=== PATIENT | male | born 1950 | race Caucasian/White ===

== ENCOUNTER 2019-05-01 05:39 | Emergency (ER) | payer MEDICARE, OTHER ==
[2019-05-01] MEDS ORDERED: Adacel Vial IM ONE ×2 (06:25→06:33)
[2019-05-01] MEDS ORDERED: Zofran 4 MG/2 ML VIAL IV ONE (06:25)
--- NOTE | 2019-05-01 06:26 | ERPHSYRPT ---
- History of Present Illness Time Seen by Provider: 05/01/19 06:10 Source: patient Exam Limitations: no limitations Patient Subjective Stated Complaint: pt states he was woking on equipment in his garage yesterday. states he was down on his knees and thinks he may have a piece of metal in his knee. states pain woke him up around 0200, he has swelling , redness, and warmth in his knee. Triage Nursing Assessment: pt alert and oriented, answers questions approp. pt back per wheelchair. ambulates from wheelchair to stretcher with limping gait noted. respirations nonlabored. small open area to rt knee with redness and warmth surrounding. pedal pulse and cap refill to rt wnl. Physician History: 68 y/o white male presents with right knee redness, tenderness and warmth. pt was working with [employer] yesterday. he knelt down onto right knee and thinks he has a piece of metal under the skin. within 24 hours, he has the above sx. he did place antibiotic ointment on open site. pt is not diabetic. he has not had a fever. Method of Injury: other (knelt onto ground) Occurred: yesterday Quality: constant, burning Severity of Pain-Max: moderate Severity of Pain-Current: moderate Lower Extremities Pain: knee: right Modifying Factors: Improves With: movement (hurts) Allergies/Adverse Reactions: Penicillins Allergy (Verified 01/04/13 09:18) Hx Tetanus, Diphtheria Vaccination/Date Given: No Hx Influenza Vaccination/Date Given: No Hx Pneumococcal Vaccination/Date Given: No Immunizations Up to Date: No - Review of Systems Constitutional: No Symptoms Eyes: No Symptoms Ears, Nose, & Throat: No Symptoms Respiratory: No Symptoms Cardiac: No Symptoms Abdominal/Gastrointestinal: No Symptoms Genitourinary Symptoms: No Symptoms Skin: Cellulitis (skin of ant knee on right ), Induration Neurological: No Symptoms Psychological: No Symptoms Endocrine: No Symptoms Hematologic/Lymphatic: No Symptoms Immunological/Allergic: No Symptoms All Other Systems: Reviewed and Negative - Past Medical History Pertinent Past Medical History: Yes Neurological History: No Pertinent History ENT History: No Pertinent History Cardiac History: Myocardial Infarction ([place]) Respiratory History: No Pertinent History Endocrine Medical History: No Pertinent History Musculoskeletal History: Arthritis GI Medical History: No Pertinent History History: No Pertinent History Psycho-Social History: No Pertinent History Male Reproductive Disorders: No Pertinent History Other Medical History: SHIKHA - Past Surgical History Past Surgical History: Yes (knee, shoulder, cardiac stenting) Cardiac: Cardiac Stent Respiratory: No Pertinent History Gastrointestinal: No Pertinent History Genitourinary: No Pertinent History Musculoskeletal: Orthopedic Surgery - Social History Smoking Status: Current every day smoker How long have you smoked: yrs Exposure to second hand smoke: No Drug Use: none Patient Lives Alone: Yes - Nursing Vital Signs Nursing Vital Signs: Initial Vital Signs Temperature 97.8 F 05/01/19 05:46 Pulse Rate 65 05/01/19 05:46 Respiratory Rate 20 05/01/19 05:46 Blood Pressure 126/62 05/01/19 05:46 O2 Sat by Pulse Oximetry 100 05/01/19 05:46 Pain Scale Pain Intensity 10 - Physical Exam General Appearance: no apparent distress, alert, anxiety Eyes, Ears, Nose, Throat Exam: normal ENT inspection, moist mucous membranes Neck Exam: normal inspection, non-tender, supple, full range of motion Cardiovascular/Respiratory Exam: chest non-tender Gastrointestinal/Abdominal Exam: non-tender Back Exam: normal inspection, normal range of motion, No CVA tenderness, No vertebral tenderness Hips Exam: bilateral: non-tender, normal inspection, normal range of motion, no evidence of injury Legs Exam: bilateral leg: non-tender, normal inspection, normal range of motion , no evidence of injury Knees Exam: right knee: pain, soft tissue tenderness, swelling, other (warmth, redness ant knee; no pus expressible), left knee: non-tender, normal inspection , normal range of motion, no evidence of injury Ankle Exam: bilateral ankle: non-tender, normal inspection, normal range of motion, no evidence of injury Foot Exam: bilateral foot: non-tender, normal inspection, normal range of motion , no evidence of injury Neuro/Tendon Exam: normal sensation, normal motor functions, normal tendon functions Mental Status Exam: alert, oriented x 3, cooperative Skin Exam: normal color, other (warmth, redness, cellulitis and induration right ant knee) SpO2 Interpretation: normal SpO2: 100 O2 Delivery: Room Air - Course Nursing assessment & vital signs reviewed: Yes Ordered Tests: Active Orders 24 hr Category Date Time Status IV Insertion STAT Care 05/01/19 06:25 Active KNEE (3 VIEWS) Stat Exams 05/01/19 06:35 Ordered BLOOD CULTURE Stat Lab 05/01/19 06:49 Received CBC W DIFF Stat Lab 05/01/19 06:17 Completed CMP Stat Lab 05/01/19 06:17 Received CULTURE,WOUND Stat Lab 05/01/19 06:26 Uncollected Lactic Acid Stat Lab 05/01/19 06:38 Completed Medication Summary Discontinued Medications Generic Name Dose Route Start Last Admin Trade Name Anastacioq PRN Reason Stop Dose Admin Diphtheria/Tetanus/Acell Pertussis 0.5 ml 05/01/19 06:25 05/01/19 06:43 Adacel Vial IM 05/01/19 06:26 0.5 ml .ONCE ONE Administration Diphtheria/Tetanus/Acell Pertussis Confirm 05/01/19 06:33 Adacel Vial Administered 05/01/19 06:34 Dose 0.5 ml IM .STK-MED ONE Hydromorphone HCl 0.5 mg 05/01/19 06:28 05/01/19 06:37 Hydromorphone 1 Mg/Ml Ampule IV 05/01/19 06:29 0.5 mg STAT ONE Administration Hydromorphone HCl Confirm 05/01/19 06:33 Hydromorphone 1 Mg/Ml Ampule Administered 05/01/19 06:34 Dose 1 mg .ROUTE .STK-MED ONE Ceftriaxone Sodium/Dextrose 1 g in 50 mls @ 100 mls/hr 05/01/19 06:27 Rocephin 1 Gm-D5w 50 Ml Bag IV 05/01/19 06:56 STAT STA Ceftriaxone Sodium/Dextrose Confirm 05/01/19 06:33 Rocephin 1 Gm-D5w 50 Ml Bag Administered 05/01/19 06:34 Dose 1 g in 50 mls @ ud IV .STK-MED ONE Ondansetron HCl 4 mg 05/01/19 06:25 05/01/19 06:37 Zofran 4 Mg/2 Ml Vial IV 05/01/19 06:26 4 mg STAT ONE Administration Ondansetron HCl Confirm 05/01/19 06:33 Zofran 4 Mg/2 Ml Vial Administered 05/01/19 06:34 Dose 4 mg .ROUTE .STK-MED ONE Trimethoprim/Sulfamethoxazole 1 tab 05/01/19 06:28 05/01/19 06:51 Bactrim Ds Tablet PO 05/01/19 06:29 1 tab STAT STA Administration Trimethoprim/Sulfamethoxazole Confirm 05/01/19 06:33 Bactrim Ds Tablet Administered 05/01/19 06:34 Dose 1 tab PO .STK-MED ONE Lab/Rad Data: Laboratory Result Diagrams 05/01/19 06:17 Laboratory Results 05/01/19 05/01/19 Range/Units 06:38 06:17 WBC 10.0 (4.0-10.5) K/mm3 RBC 3.67 L (4.1-5.6) M/mm3 Hgb 12.8 (12.5-18.0) gm/dl Hct 37.3 L (42-50) % MCV 101.6 H (78-100) fl MCH 34.8 H (26-32) pg MCHC 34.3 (32-36) g/dl RDW 13.8 (11.5-14.0) % Plt Count 148 L (150-450) K/mm3 MPV 11.2 H (6-9.5) fl Gran % 64.5 (36.0-66.0) % Eos # (Auto) 0.25 (0-0.5) Absolute Lymphs (auto) 1.82 (1.0-4.6) Absolute Monos (auto) 1.47 H (0.0-1.3) Lymphocytes % 18.1 L (24.0-44.0) % Monocytes % 14.6 H (0.0-12.0) % Eosinophils % 2.5 (0.00-5.0) % Basophils % 0.3 (0.0-0.4) % Absolute Granulocytes 6.47 (1.4-6.9) Basophils # 0.03 (0-0.4) Lactic Acid 0.7 (0.4-2.0) - Progress Progress: unchanged, pain not gone completely, re-examined Progress Note: 05/01/19 07:07 xray right knee-no radiopaque fb visible Counseled pt/family regarding: lab results, diagnosis, need for follow-up, rad results - Departure Departure Disposition: Home Clinical Impression: Cellulitis of knee, right Condition: Stable Critical Care Time: No Referrals: SAMRA ANTONY MD [Primary Care Provider] - Additional Instructions: wash area daily with soap and water. no ointments, lotions or creams. return tomorrow morning for re evaluation, sooner if symptoms worsen Prescriptions: Hydrocodone/APAP 5/325 [[place] 5/325 mg] 1 each PO Q6H PRN PRN #10 tablet MDD 4 PRN Reason: Pain Smz/Tmp Ds Tablet [Bactrim Ds Tablet] 1 udtab PO BID #14 tablet
[2019-05-01] MEDS ORDERED: ROCEPHIN 1 Gm-D5w 50 ml Bag** 1 G/50 ML IVPB IV STA (06:27)
[2019-05-01] MEDS ORDERED: Hydromorphone 1 mg/ml Ampule IV ONE (06:28)
[2019-05-01] MEDS ORDERED: BACTRIM DS TABLET PO STA (06:28)
[2019-05-01] MEDS ORDERED: ROCEPHIN 1 Gm-D5w 50 ml Bag** 1 G/50 ML IVPB IV ONE (06:33)
[2019-05-01] MEDS ORDERED: BACTRIM DS TABLET PO ONE (06:33)
[2019-05-01] MEDS ORDERED: Hydromorphone 1 mg/ml Ampule ONE (06:33)
[2019-05-01] MEDS ORDERED: Zofran 4 MG/2 ML VIAL ONE (06:33)
[2019-05-01 07:00] LABS: Absolute Neutrophil Ct (ANC) 6.47 (1.4-6.9); BASOPHIL % 0.3 % (0.0-0.4); Basophil (Absolute #) 0.03 (0-0.4); Eosinophil % 2.5 % (0.00-5.0); Eosinophil (Absolute #) 0.25 (0-0.5); Hematocrit 37.3 % (42-50); Hemoglobin 12.8 gm/dl (12.5-18.0); Lymphocyte (Absolute #) 1.82 (1.0-4.6); Lymphocytes % 18.1 % (24.0-44.0); Mean Cell Volume 101.6 fl (78-100); Mean Corpuscular Hemoglobin 34.8 pg (26-32); Mean Corpuscular Hgb Concent. 34.3 g/dl (32-36); Mean Platelet Volume 11.2 fl (6-9.5); Monocyte (Absolute #) 1.47 (0.0-1.3); Monocytes % 14.6 % (0.0-12.0); Neutrophil % 64.5 % (36.0-66.0); Platelet Count 148 K/mm3 (150-450); Red Blood Count 3.67 M/mm3 (4.1-5.6); Red Cell Distribution Width 13.8 % (11.5-14.0)
[2019-05-01 07:11] LABS: ALBUMIN 3.5 g/dL (3.5-5.0); ALKALINE PHOSPHATASE 44 U/L (38-126); ANION GAP 13.6 MEQ/L (5-15); BLOOD UREA NITROGEN 25 mg/dL (9-20); CHLORIDE 106 mmol/L (98-107); Calcium 9.4 mg/dL (8.4-10.2); Carbon Dioxide 23 mmol/L (22-30); Creatinine 1 0.87 mg/dL (0.66-1.25); Glucose 98 mg/dL (74-106); Potassium 4.4 mmol/L (3.5-5.1); SGOT/AST 28 U/L (17-59); SGPT/ALT 22 U/L (0-50); SODIUM 138 mmol/L (137-145); Total Protein 6.3 g/dL (6.3-8.2)
[2019-05-01 08:36] VITALS: BP 146/69; PULSE 63; O2SAT 93
--- NOTE | 2019-05-01 09:13 | XRAY ---
Indication: Knee injury. Possible foreign body. Comparison: None 3 views of the right knee demonstrates mild medial joint space narrowing/spurring, small nonspecific effusion, anterior medial soft tissue swelling, and scattered vascular calcifications. No radiopaque foreign body. Remaining knee unremarkable.
== END 2019-05-01 08:48 | disposition home or self-care (01) ==
LOC: ED 05:39
DX: L03.115 Cellulitis of right lower limb (principal); S81.001A Unspecified open wound, right knee, initial encounter
CPT/HCPCS: 36000; 36415; 73562; 80053; 83605; 85025; 87040; 87070; 87077; 87186; 90471; 90715; 96365; 96374; 96375; 99284; J0696; J1170; J2405; A9270-GY

== ENCOUNTER 2019-05-02 07:46 | Emergency (ER) | payer MEDICARE, OTHER ==
[2019-05-02 07:56] VITALS: BP 118/63; PULSE 63; O2SAT 93
--- NOTE | 2019-05-02 07:59 | ERPHSYRPT ---
- History of Present Illness Time Seen by Provider: 05/02/19 07:53 Source: patient Exam Limitations: no limitations Allergies/Adverse Reactions: Penicillins Allergy (Verified 05/02/19 07:58) Home Medications: Hydrocodone /APAP 7.5/325 mg [[place] 7.5/325 mg Tab] 1 each PO Q6H PRN PRN 05/02/19 [History] Hx Tetanus, Diphtheria Vaccination/Date Given: No Hx Influenza Vaccination/Date Given: No Hx Pneumococcal Vaccination/Date Given: No - Past Medical History Pertinent Past Medical History: Yes Neurological History: No Pertinent History ENT History: No Pertinent History Cardiac History: Myocardial Infarction ([place]) Respiratory History: No Pertinent History Endocrine Medical History: No Pertinent History Musculoskeletal History: Arthritis GI Medical History: No Pertinent History History: No Pertinent History Psycho-Social History: No Pertinent History Male Reproductive Disorders: No Pertinent History Other Medical History: SHIKHA - Past Surgical History Past Surgical History: Yes (knee, shoulder, cardiac stenting) Cardiac: Cardiac Stent Respiratory: No Pertinent History Gastrointestinal: No Pertinent History Genitourinary: No Pertinent History Musculoskeletal: Orthopedic Surgery - Social History Smoking Status: Current every day smoker How long have you smoked: yrs Exposure to second hand smoke: No Drug Use: none Patient Lives Alone: Yes - Nursing Vital Signs Nursing Vital Signs: Initial Vital Signs Temperature 97.7 F 05/02/19 07:49 Pulse Rate 63 05/02/19 07:49 Respiratory Rate 16 05/02/19 07:49 Blood Pressure 118/63 05/02/19 07:49 O2 Sat by Pulse Oximetry 93 L 05/02/19 07:49 Pain Scale Pain Intensity 2 - Progress Progress: improved - Departure Departure Disposition: Home Clinical Impression: Cellulitis of knee, right Condition: Good Critical Care Time: No Referrals: SAMRA ANTONY MD [Primary Care Provider] - Additional Instructions: keep it clean, take antibiotics as recommended. Take pain medications as needed. Follow with her primary care for reevaluation artery next week. Return to ER for increasing pain/swelling/redness/discharge/fever or chills.
--- NOTE | 2019-05-02 08:12 | ERPHSYRPT ---
- History of Present Illness Time Seen by Provider: 05/02/19 07:53 Source: patient Exam Limitations: no limitations Patient Subjective Stated Complaint: pt here for a wound recheck, he has a piece of metal n right knee yesterday and was here for antibotices,he states the redness and swelling is better Triage Nursing Assessment: pt alert, walked in, resp easy, skin w/d/p. has puncture wound to right knee no drainage noted, reddness and swelling noted, Physician History: 68 years old male is into the ER for reevaluation of right knee cellulitis. Patient was seen in ER yesterday, started on Bactrim and has remarkable improvement since yesterday as the area was marked. He still has swelling with erythema and upper lateral side of right knee. No discharge. patient reports marked improvement in pain. He still have pain mild to moderate with ambulation and favoring on either side but no fever or chills. Occurred: days ago (2) Quality: aching, sharpness Severity of Pain-Max: moderate Severity of Pain-Current: mild Lower Extremities Pain: knee: right Modifying Factors: Improves With: immobilization, movement Allergies/Adverse Reactions: Penicillins Allergy (Verified 05/02/19 07:58) Home Medications: Hydrocodone /APAP 7.5/325 mg [[place] 7.5/325 mg Tab] 1 each PO Q6H PRN PRN 05/02/19 [History] Hx Tetanus, Diphtheria Vaccination/Date Given: Yes Hx Influenza Vaccination/Date Given: No Hx Pneumococcal Vaccination/Date Given: No Immunizations Up to Date: Yes - Review of Systems Constitutional: No Symptoms Ears, Nose, & Throat: No Symptoms Respiratory: No Symptoms Cardiac: No Symptoms Abdominal/Gastrointestinal: No Symptoms Musculoskeletal: Joint Redness, Joint Pain, Joint Swelling Skin: Cellulitis Psychological: No Symptoms Hematologic/Lymphatic: No Symptoms Immunological/Allergic: No Symptoms - Past Medical History Pertinent Past Medical History: Yes Neurological History: No Pertinent History ENT History: No Pertinent History Cardiac History: Myocardial Infarction ([place]) Respiratory History: No Pertinent History Endocrine Medical History: No Pertinent History Musculoskeletal History: Arthritis GI Medical History: No Pertinent History History: No Pertinent History Psycho-Social History: No Pertinent History Male Reproductive Disorders: No Pertinent History Other Medical History: SHIKHA - Past Surgical History Past Surgical History: Yes (knee, shoulder, cardiac stenting) Cardiac: Cardiac Stent Respiratory: No Pertinent History Gastrointestinal: No Pertinent History Genitourinary: No Pertinent History Musculoskeletal: Orthopedic Surgery - Social History Smoking Status: Current every day smoker How long have you smoked: yrs Exposure to second hand smoke: No Drug Use: none Patient Lives Alone: Yes - Nursing Vital Signs Nursing Vital Signs: Initial Vital Signs Temperature 97.7 F 05/02/19 07:49 Pulse Rate 63 05/02/19 07:49 Respiratory Rate 16 05/02/19 07:49 Blood Pressure 118/63 05/02/19 07:49 O2 Sat by Pulse Oximetry 93 L 05/02/19 07:49 Pain Scale Pain Intensity 2 - Physical Exam General Appearance: no apparent distress Neck Exam: normal inspection, non-tender, supple Cardiovascular/Respiratory Exam: normal breath sounds, regular rate/rhythm Back Exam: normal inspection Knees Exam: right knee: soft tissue tenderness, swelling (4x3 cm swelling in the right upper knee. Indurated, warm and mildly tender to touch. No fluctuation.) Neuro/Tendon Exam: normal sensation, normal motor functions, normal tendon functions Mental Status Exam: alert, oriented x 3, cooperative Skin Exam: normal color SpO2 Interpretation: normal SpO2: 93 O2 Delivery: Room Air - Course Nursing assessment & vital signs reviewed: Yes - Progress Progress: improved Progress Note: there's marked improvement and redness/cellulitis from area marked yesterday the only 4 cm now. No fluctuation. No fever or chills. I recommended patient continue with antibiotics and outpatient followup. Discussed signs and symptoms of worsening return to ER which he seems understanding. Stable for discharge. 05/02/19 08:05 Counseled pt/family regarding: diagnosis, need for follow-up - Departure Departure Disposition: Home Clinical Impression: Cellulitis of knee, right Condition: Good Critical Care Time: No Referrals: SAMRA ANTONY MD [Primary Care Provider] - Additional Instructions: keep it clean, take antibiotics as recommended. Take pain medications as needed. Follow with her primary care for reevaluation artery next week. Return to ER for increasing pain/swelling/redness/discharge/fever or chills.
== END 2019-05-02 08:26 | disposition home or self-care (01) ==
LOC: ED 07:46
DX: L03.115 Cellulitis of right lower limb (principal)
CPT/HCPCS: 99283

== ENCOUNTER 2023-03-05 08:49 | Observation (INO) | payer MEDICARE, OTHER ==
[2023-03-05] MEDS ORDERED: Hydromorphone 1 mg/ml Injection IV ONE ×2 (08:59→11:29)
[2023-03-05] MEDS ORDERED: Zofran 4 MG/2 ML VIAL IV ONE (08:59)
[2023-03-05] MEDS ORDERED: Sodium Chloride 0.9% 1000 ML 1,000 ML IV SCH (09:00)
[2023-03-05] MEDS ORDERED: Zofran 4 MG/2 ML VIAL ONE (09:18)
[2023-03-05] MEDS ORDERED: Hydromorphone 1 mg/ml Injection ONE ×2 (09:18→11:19)
--- NOTE | 2023-03-05 09:39 | ERPHSYRPT ---
- History of Present Illness Time Seen by Provider: 03/05/23 08:50 Historian: patient Exam Limitations: no limitations Patient Subjective Stated Complaint: C/O left groin pain that is sending sharp pains into his left thigh that he noticed at around 0200 today when attempting to get up and go to the bathroom during the night. Patient states pain is only a 2-3 if he is lying still in bed but shoots up to a 10 when attempting to stand up. Triage Nursing Assessment: Patient brought back to ER in a W/C. He was able to transfer to bed with assist of one staff. He is alert and oriented. Edema noted to BLE. Strong, equal pedal pulses present to in both feet. CMS to foot/toes WNL. Physician History: Patient is a 72-year-old white male who presents with a complaint of a severe pain in the left inguinal area which radiates down the side of the inner thigh and into the left side of the scrotum. The pain started at 2 AM when he got up to go to the bathroom he has had ever had a similar kind of pain he cannot walk more than a few steps secondary to the severe unremitting pain. While laying in the ER prior to his CT scan he did report to nursing staff that the pain on the left had remitted somewhat but he was now hurting on the right. Activities at Onset: other (Going to the bathroom) Quality: sharpness, stabbing, throbbing Abdominal Pain Onset Location: other (Left inguinal area) Pain Radiation: groin, other (Radiates into the thigh and into the scrotum) Severity of Pain-Max: severe Severity of Pain-Current: severe Associated Symptoms: testicular pain Previous symptoms: no prior history Allergies/Adverse Reactions: Penicillins Allergy (Verified 03/05/23 09:04) Home Medications: Aspirin EC 81 mg [Ecotrin 81 mg] 1 tab PO HS 03/05/23 [History] Clopidogrel Bisulfate [PLAVIX Tablet] 1 tab PO HS 03/05/23 [History] Ezetimibe 10 mg [Zetia 10 MG] 1 tab PO HS 03/05/23 [History] Lisinopril/Hydrochlorothiazide [Lisinopril-Hctz 20-12.5 mg Tab] 1 tab PO BID 03/05/23 [History] Metoprolol Tartrate 50 mg [Lopressor 50 MG] 1 tab PO BID 03/05/23 [History] PARoxetine HCL [Paroxetine HCl] 1 tab PO HS 03/05/23 [History] Rosuvastatin Calcium 1 tab PO HS 03/05/23 [History] Hx Tetanus, Diphtheria Vaccination/Date Given: Yes Hx Influenza Vaccination/Date Given: No Hx Pneumococcal Vaccination/Date Given: No Immunizations Up to Date: Yes Travel Risk - International Travel Have you traveled outside of the country in past 3 weeks: No - Coronavirus Screening Are you exhibiting any of the following symptoms?: No Close contact with a COVID-19 positive Pt in past 14-21 Days: No - Vaccine Status Have you recieved a Covid-19 vaccination: Yes [employer] Analyst: Unknown - Vaccination Dates Dates if Unknown: ? - Review of Systems Constitutional: No Fever, No Chills Eyes: No Symptoms Ears, Nose, & Throat: No Symptoms Respiratory: No Cough, No Dyspnea Cardiac: No Chest Pain, No Edema, No Syncope Abdominal/Gastrointestinal: No Abdominal Pain, No Nausea, No Vomiting, No Diarrhea Genitourinary Symptoms: Testicle Pain, Other (Groin pain when standing it feels as if there is an inguinal hernia palpable with rib climbing supine no definite hernia can be palpated.), No Dysuria Musculoskeletal: No Back Pain, No Neck Pain Skin: No Rash Neurological: No Dizziness, No Focal Weakness, No Sensory Changes Psychological: No Symptoms Endocrine: No Symptoms All Other Systems: Reviewed and Negative - Past Medical History Pertinent Past Medical History: Yes Neurological History: No Pertinent History ENT History: No Pertinent History Cardiac History: High Cholesterol, Hypertension, Myocardial Infarction (MS) Respiratory History: No Pertinent History Endocrine Medical History: No Pertinent History Musculoskeletal History: Arthritis GI Medical History: No Pertinent History History: No Pertinent History Psycho-Social History: Anxiety, Depression Male Reproductive Disorders: No Pertinent History Other Medical History: SHIKHA, DVT right leg - Past Surgical History Past Surgical History: Yes (knee, shoulder, cardiac stenting) Cardiac: Cardiac Catheterization, Cardiac Stent Respiratory: No Pertinent History Gastrointestinal: No Pertinent History Genitourinary: No Pertinent History Musculoskeletal: Orthopedic Surgery Other Surgical History: knee replacement - Social History Smoking Status: Current some day smoker How long have you smoked: Years Exposure to second hand smoke: No Drug Use: none Patient Lives Alone: Yes - Nursing Vital Signs Nursing Vital Signs: Initial Vital Signs Temperature 97.4 F 03/05/23 08:49 Pulse Rate 48 L 03/05/23 08:49 Respiratory Rate 18 03/05/23 08:49 Blood Pressure 103/60 03/05/23 08:49 O2 Sat by Pulse Oximetry 95 03/05/23 08:49 Pain Scale Pain Intensity 4 - Physical Exam General Appearance: no apparent distress, alert Eye Exam: PERRL/EOMI, eyes nml inspection Ears, Nose, Throat Exam: normal ENT inspection, pharynx normal, moist mucous membranes Neck Exam: normal inspection, non-tender, supple, full range of motion Respiratory Exam: normal breath sounds, lungs clear, No respiratory distress Cardiovascular Exam: regular rate/rhythm, normal heart sounds Gastrointestinal/Abdomen Exam: soft, No tenderness, No mass Male Genitalia Exam: hernia (When standing it feels like there is an inguinal hernia on the left this is not palpable with supination.), testicular tenderness Rectal Exam: deferred Back Exam: normal inspection, normal range of motion, No CVA tenderness, No vertebral tenderness Extremity Exam: normal inspection, normal range of motion, pelvis stable Neurologic Exam: alert, oriented x 3, cooperative, normal mood/affect, nml cereb ellar function, sensation nml, No motor deficits Skin Exam: normal color, warm, dry SpO2: 95 - Course Nursing assessment & vital signs reviewed: Yes EKG Interpreted by Me: RATE (44), Sinus Malik, NORMAL AXIS, Other (Border long prolonged borderline prolonged CA interval) - CT Exams Abdomen/Pelvis CT Interpretation: Other (CT interpretation reviewed by me) - Radiology Ultrasound Exam Scrotal Ultrasound: Other (Ultrasound reports reviewed by me) Ordered Tests: Active Orders 24 hr Category Date Time Status Clean Catch Urine Specimen STAT Care 03/05/23 08:59 Active IV Insertion STAT Care 03/05/23 08:59 Active ABDOMEN AND PELVIS W CONTRAST [CT] Stat Exams 03/05/23 09:00 Completed TESTICLE [US] Stat Exams 03/05/23 11:41 Completed VENOUS BILATERAL EXTREMITY [US] Stat Exams 03/05/23 11:42 Completed AMYLASE Stat Lab 03/05/23 09:30 Completed CBC W DIFF Stat Lab 03/05/23 09:30 Completed CMP Stat Lab 03/05/23 09:30 Completed CMP Stat Lab 03/05/23 12:38 Completed LIPASE Stat Lab 03/05/23 09:30 Completed Lactic Acid Stat Lab 03/05/23 08:59 Completed Potassium (Lab Test) [Potassium] Stat Lab 03/05/23 10:14 Completed UA W/RFX UR CULTURE Stat Lab 03/05/23 11:03 Completed Urine Triage Profile Stat Lab 03/05/23 11:03 Completed Medication Summary Generic Name Dose Route Start Last Admin Trade Name Freq PRN Reason Stop Dose Admin Sodium Chloride 1,000 mls @ 100 mls/hr 03/05/23 09:00 03/05/23 11:28 Sodium Chloride 0.9% 1000 Ml IV 04/04/23 08:59 Infused .Q10H STEFANIE Infusion Discontinued Medications Generic Name Dose Route Start Last Admin Trade Name Freq PRN Reason Stop Dose Admin Calcium Gluconate 1,000 mg 03/05/23 10:15 03/05/23 10:32 Calcium Gluconate 1000 Mg/10 Ml Vial IV 03/05/23 10:16 1,000 mg STAT ONE Administration Calcium Gluconate Confirm 03/05/23 10:32 Calcium Gluconate 1000 Mg/10 Ml Vial Administered 03/05/23 10:33 Dose 1,000 mg IV .STK-MED ONE Dextrose 25 ml 03/05/23 10:45 03/05/23 11:04 Dextrose 50%-Water 50 Ml Vial IV 03/05/23 10:46 Not Given ONCE ONE Dextrose Confirm 03/05/23 11:00 Dextrose 50%-Water 50 Ml Abboject Administered 03/05/23 11:01 Dose 50 ml IV .STK-MED ONE Dextrose 50 ml 03/05/23 11:03 03/05/23 11:04 Dextrose 50%-Water 50 Ml Abboject IV 03/05/23 11:04 50 ml STAT ONE Administration Hydromorphone HCl 1 mg 03/05/23 08:59 03/05/23 09:30 Hydromorphone 1 Mg/1ml Inj IV 03/05/23 09:00 1 mg STAT ONE Administration Hydromorphone HCl Confirm 03/05/23 09:18 Hydromorphone 1 Mg/1ml Inj Administered 03/05/23 09:19 Dose 1 mg .ROUTE .STK-MED ONE Hydromorphone HCl Confirm 03/05/23 11:19 Hydromorphone 1 Mg/1ml Inj Administered 03/05/23 11:20 Dose 1 mg .ROUTE .STK-MED ONE Hydromorphone HCl 1 mg 03/05/23 11:29 03/05/23 11:25 Hydromorphone 1 Mg/1ml Inj IV 03/05/23 11:30 1 mg STAT ONE Administration Insulin Human Regular 5 unit 03/05/23 10:36 03/05/23 11:00 Insulin Regular, Human 1 Unit IV 03/05/23 10:37 5 unit STAT ONE Administration Insulin Human Regular Confirm 03/05/23 10:59 Insulin Regular, Human 1 Unit Administered 03/05/23 11:00 Dose 5 unit .ROUTE .STK-MED ONE Ondansetron HCl 4 mg 03/05/23 08:59 03/05/23 09:28 Ondansetron Hcl 4 Mg/2 Ml Vial IV 03/05/23 09:00 4 mg STAT ONE Administration Ondansetron HCl Confirm 03/05/23 09:18 Ondansetron Hcl 4 Mg/2 Ml Vial Administered 03/05/23 09:19 Dose 4 mg .ROUTE .STK-MED ONE Sodium Polystyrene Sulfonate 30 g 03/05/23 10:38 03/05/23 11:10 Sodium Polystyrene Sulfonate 15 G/60 Ml Bottle PO 03/05/23 10:39 30 g STAT ONE Administration Sodium Polystyrene Sulfonate Confirm 03/05/23 10:59 Sodium Polystyrene Sulfonate 15 G/60 Ml Bottle Administered 03/05/23 11:00 Dose 30 g .ROUTE .STK-MED ONE Lab/Rad Data: Laboratory Result Diagrams 03/05/23 09:30 03/05/23 12:38 Laboratory Results 03/05/23 03/05/23 03/05/23 Range/Units 12:38 11:03 11:03 WBC (4.0-10.5) x10^3/uL RBC (4.1-5.6) x10^6/uL Hgb (12.5-18.0) g/dL Hct (42-50) % MCV (78-100) fL MCH (26-32) pg MCHC (32-36) g/dL RDW (11.5-14.0) % Plt Count (150-450) x10^3/uL MPV (7.5-11.0) fL Gran % (36.0-66.0) % Immature Gran % (Auto) (0.00-0.4) % Nucleat RBC Rel Count (0.00-0.1) % Eos # (Auto) (0-0.5) x10^3/uL Immature Gran # (Auto) (0.00-0.03) x10^3u/L Absolute Lymphs (auto) (1.0-4.6) x10^3/uL Absolute Monos (auto) (0.0-1.3) x10^3/uL Absolute Nucleated RBC (0.00-0.01) x10^3u/L Lymphocytes % (24.0-44.0) % Monocytes % (0.0-12.0) % Eosinophils % (0.00-5.0) % Basophils % (0.0-0.4) % Absolute Granulocytes (1.4-6.9) x10^3/uL Basophils # (0-0.4) x10^3/uL Sodium 136 L (137-145) mmol/L Potassium 5.5 H (3.5-5.1) mmol/L Chloride 110 H (98-107) mmol/L Carbon Dioxide 20 L (22-30) mmol/L Anion Gap 12.7 (5-15) MEQ/L BUN 28 H (9-20) mg/dL Creatinine 1.16 (0.66-1.25) mg/dL Estimated GFR > 60.0 ML/MIN Glucose 71 L (74-106) mg/dL Lactic Acid (0.4-2.0) Calcium 8.5 (8.4-10.2) mg/dL Total Bilirubin 0.30 (0.2-1.3) mg/dL AST 23 (17-59) U/L ALT 22 (0-50) U/L Alkaline Phosphatase 49 (38-126) U/L Serum Total Protein 5.8 L (6.3-8.2) g/dL Albumin 3.3 L (3.5-5.0) g/dL Amylase (30-110) U/L Lipase (23-300) U/L Urine Color Yellow (Yellow) Urine Appearance Clear (Clear) Urine pH 5.5 (4.6-8.0) Ur Specific [place] 1.020 (1.005-1.030) Urine Protein Negative (Negative) Urine Glucose (UA) Negative (Negative) mg/dL Urine Ketones Negative (Negative) Urine Blood Negative (Negative) Urine Nitrite Negative (Negative) Urine Bilirubin Negative (Negative) Urine Urobilinogen 1.0 A (0.2) mg/dL Ur Leukocyte Esterase Negative (Negative) U Hyaline Cast (Auto) NONE SEEN (0-2) /LPF Urine Microscopic RBC 0-2 (0-5) /HPF Urine Microscopic WBC 0-2 (0-5) /HPF Ur Epithelial Cells None Seen (None Seen) /HPF Urine Bacteria None Seen (None Seen) /HPF Urine Culture Reflexed NO (NO) Urine Opiates Level POSITIVE (NEGATIVE) Ur Methadone NEGATIVE (NEGATIVE) Urine Barbiturates NEGATIVE (NEGATIVE) Ur Phencyclidine (PCP) NEGATIVE (NEGATIVE) Urine Amphetamine NEGATIVE (NEGATIVE) U Benzodiazepine Level POSITIVE (NEGATIVE) Urine Cocaine NEGATIVE (NEGATIVE) Urine Marijuana (THC) NEGATIVE (NEGATIVE) 03/05/23 03/05/23 03/05/23 Range/Units 10:14 09:30 09:30 WBC 7.6 (4.0-10.5) x10^3/uL RBC 3.20 L (4.1-5.6) x10^6/uL Hgb 10.8 L (12.5-18.0) g/dL Hct 32.4 L (42-50) % MCV 101.3 H (78-100) fL MCH 33.8 H (26-32) pg MCHC 33.3 (32-36) g/dL RDW 13.8 (11.5-14.0) % Plt Count 132 L (150-450) x10^3/uL MPV 10.5 (7.5-11.0) fL Gran % 67.7 H (36.0-66.0) % Immature Gran % (Auto) 0.3 (0.00-0.4) % Nucleat RBC Rel Count 0.0 (0.00-0.1) % Eos # (Auto) 0.22 (0-0.5) x10^3/uL Immature Gran # (Auto) 0.02 (0.00-0.03) x10^3u/L Absolute Lymphs (auto) 1.37 (1.0-4.6) x10^3/uL Absolute Monos (auto) 0.80 (0.0-1.3) x10^3/uL Absolute Nucleated RBC 0.00 (0.00-0.01) x10^3u/L Lymphocytes % 18.1 L (24.0-44.0) % Monocytes % 10.6 (0.0-12.0) % Eosinophils % 2.9 (0.00-5.0) % Basophils % 0.4 (0.0-0.4) % Absolute Granulocytes 5.11 (1.4-6.9) x10^3/uL Basophils # 0.03 (0-0.4) x10^3/uL Sodium 134 L (137-145) mmol/L Potassium 6.8 H* 6.3 H* (3.5-5.1) mmol/L Chloride 108 H (98-107) mmol/L Carbon Dioxide 20 L (22-30) mmol/L Anion Gap 12.0 (5-15) MEQ/L BUN 32 H (9-20) mg/dL Creatinine 1.31 H (0.66-1.25) mg/dL Estimated GFR 56.8 ML/MIN Glucose 100 (74-106) mg/dL Lactic Acid (0.4-2.0) Calcium 8.6 (8.4-10.2) mg/dL Total Bilirubin 0.30 (0.2-1.3) mg/dL AST 29 (17-59) U/L ALT 23 (0-50) U/L Alkaline Phosphatase 55 (38-126) U/L Serum Total Protein 6.2 L (6.3-8.2) g/dL Albumin 3.6 (3.5-5.0) g/dL Amylase 77 (30-110) U/L Lipase 104 (23-300) U/L Urine Color (Yellow) Urine Appearance (Clear) Urine pH (4.6-8.0) Ur Specific [place] (1.005-1.030) Urine Protein (Negative) Urine Glucose (UA) (Negative) mg/dL Urine Ketones (Negative) Urine Blood (Negative) Urine Nitrite (Negative) Urine Bilirubin (Negative) Urine Urobilinogen (0.2) mg/dL Ur Leukocyte Esterase (Negative) U Hyaline Cast (Auto) (0-2) /LPF Urine Microscopic RBC (0-5) /HPF Urine Microscopic WBC (0-5) /HPF Ur Epithelial Cells (None Seen) /HPF Urine Bacteria (None Seen) /HPF Urine Culture Reflexed (NO) Urine Opiates Level (NEGATIVE) Ur Methadone (NEGATIVE) Urine Barbiturates (NEGATIVE) Ur Phencyclidine (PCP) (NEGATIVE) Urine Amphetamine (NEGATIVE) U Benzodiazepine Level (NEGATIVE) Urine Cocaine (NEGATIVE) Urine Marijuana (THC) (NEGATIVE) 03/05/23 Range/Units 08:59 WBC (4.0-10.5) x10^3/uL RBC (4.1-5.6) x10^6/uL Hgb (12.5-18.0) g/dL Hct (42-50) % MCV (78-100) fL MCH (26-32) pg MCHC (32-36) g/dL RDW (11.5-14.0) % Plt Count (150-450) x10^3/uL MPV (7.5-11.0) fL Gran % (36.0-66.0) % Immature Gran % (Auto) (0.00-0.4) % Nucleat RBC Rel Count (0.00-0.1) % Eos # (Auto) (0-0.5) x10^3/uL Immature Gran # (Auto) (0.00-0.03) x10^3u/L Absolute Lymphs (auto) (1.0-4.6) x10^3/uL Absolute Monos (auto) (0.0-1.3) x10^3/uL Absolute Nucleated RBC (0.00-0.01) x10^3u/L Lymphocytes % (24.0-44.0) % Monocytes % (0.0-12.0) % Eosinophils % (0.00-5.0) % Basophils % (0.0-0.4) % Absolute Granulocytes (1.4-6.9) x10^3/uL Basophils # (0-0.4) x10^3/uL Sodium (137-145) mmol/L Potassium (3.5-5.1) mmol/L Chloride (98-107) mmol/L Carbon Dioxide (22-30) mmol/L Anion Gap (5-15) MEQ/L BUN (9-20) mg/dL Creatinine (0.66-1.25) mg/dL Estimated GFR ML/MIN Glucose (74-106) mg/dL Lactic Acid 0.7 (0.4-2.0) Calcium (8.4-10.2) mg/dL Total Bilirubin (0.2-1.3) mg/dL AST (17-59) U/L ALT (0-50) U/L Alkaline Phosphatase (38-126) U/L Serum Total Protein (6.3-8.2) g/dL Albumin (3.5-5.0) g/dL Amylase (30-110) U/L Lipase (23-300) U/L Urine Color (Yellow) Urine Appearance (Clear) Urine pH (4.6-8.0) Ur Specific [place] (1.005-1.030) Urine Protein (Negative) Urine Glucose (UA) (Negative) mg/dL Urine Ketones (Negative) Urine Blood (Negative) Urine Nitrite (Negative) Urine Bilirubin (Negative) Urine Urobilinogen (0.2) mg/dL Ur Leukocyte Esterase (Negative) U Hyaline Cast (Auto) (0-2) /LPF Urine Microscopic RBC (0-5) /HPF Urine Microscopic WBC (0-5) /HPF Ur Epithelial Cells (None Seen) /HPF Urine Bacteria (None Seen) /HPF Urine Culture Reflexed (NO) Urine Opiates Level (NEGATIVE) Ur Methadone (NEGATIVE) Urine Barbiturates (NEGATIVE) Ur Phencyclidine (PCP) (NEGATIVE) Urine Amphetamine (NEGATIVE) U Benzodiazepine Level (NEGATIVE) Urine Cocaine (NEGATIVE) Urine Marijuana (THC) (NEGATIVE) - Progress Progress: improved Progress Note: 03/05/23 13:30 Patient had routine labs and we were surprised to discover a potassium of 6.3. An EKG was done which basically only showed a rate of 44 and a slight prolongation perhaps of the CA interval. We repeated the potassium because we thought that it was probably an error. The patient did have a BUN that was slightly elevated but creatinine was normal and GFR was greater than 60. Discussion with the patient revealed that he was eating large amounts of bananas to treat leg cramps. He says he had eaten 6-8 bananas a day. With the discovery of his elevated potassium being rechecked and a value of 6.8, the patient was given calcium gluconate 1 g Kayexalate 30 mg 30 g him sorry and Hum ulin insulin 5 units and D50 W as well as normal saline. It should also be noted the patient has a slow heart rate, a sinus bradycardia but he is taking 100 mg ofmetoprolol tartrate per day. Medical Desision Making - Discussion of managment Care discussed with:: hospitalist (Dr Werner) Reviewed:: Test results Agreed on:: Treatment plan (The plan was to monitor his potassium and really make sure that it continued a downward trend since it still slightly elevated. It was also decided that we would consult Dr. Gino Hloman who will be in the hospital tomorrow to ask him to examine the patient to try to elucidate the cause of his left i) Will see patient: in hospital - Diagnostic Testing Diagnostic test were ordered, analyzed, and reviewed by me: Yes Radiological Interpretation: Reviewed by me - Risk of complications The pt has a mod risk of morbidity or mortality based on: Need for prescription drug management - Departure Departure Disposition: Observation Clinical Impression: Left inguinal pain, Hyperkalemia Condition: Stable Critical Care Time: No Referrals: SAMRA ANTONY MD [Primary Care Provider] - Follow up/PCP as directed
[2023-03-05 09:40] LABS: Absolute Neutrophil Ct (ANC) 5.11 x10^3/uL (1.4-6.9); BASOPHIL % 0.4 % (0.0-0.4); Basophil (Absolute #) 0.03 x10^3/uL (0-0.4); Eosinophil % 2.9 % (0.00-5.0); Eosinophil (Absolute #) 0.22 x10^3/uL (0-0.5); Hematocrit 32.4 % (42-50); Hemoglobin 10.8 g/dL (12.5-18.0); IMMATURE GRAN # 0.02 x10^3u/L (0.00-0.03); IMMATURE GRAN % 0.3 % (0.00-0.4); Lymphocyte (Absolute #) 1.37 x10^3/uL (1.0-4.6); Lymphocytes % 18.1 % (24.0-44.0); Mean Cell Volume 101.3 fL (78-100); Mean Corpuscular Hemoglobin 33.8 pg (26-32); Mean Corpuscular Hgb Concent. 33.3 g/dL (32-36); Mean Platelet Volume 10.5 fL (7.5-11.0); Monocytes % 10.6 % (0.0-12.0); Neutrophil % 67.7 % (36.0-66.0); Platelet Count 132 x10^3/uL (150-450); Red Cell Distribution Width 13.8 % (11.5-14.0); White Blood Count 7.6 x10^3/uL (4.0-10.5)
[2023-03-05 09:54] LABS: ALBUMIN 3.6 g/dL (3.5-5.0); BILIRUBIN,TOTAL 0.3 mg/dL (0.2-1.3); Calcium 8.6 mg/dL (8.4-10.2); Creatinine 1 1.31 mg/dL (0.66-1.25); EST GLOMERULAR FILTRATION RATE 56.8 ML/MIN; Total Protein 6.2 g/dL (6.3-8.2)
[2023-03-05 09:59] LABS: Potassium 6.3 mmol/L (3.5-5.1)
[2023-03-05] MEDS ORDERED: Calcium Gluconate 10% 1000 MG IV ONE ×2 (10:15→10:32)
[2023-03-05] MEDS ORDERED: HUMULIN R IV ONE (10:36)
[2023-03-05] MEDS ORDERED: Kayexylate 15 GM/60 ML PO ONE (10:38)
[2023-03-05] MEDS ORDERED: D50W 50ML Vial IV ONE (10:45)
[2023-03-05] MEDS ORDERED: HUMULIN R ONE (10:59)
[2023-03-05] MEDS ORDERED: Kayexylate 15 GM/60 ML ONE (10:59)
[2023-03-05] MEDS ORDERED: D50W 50 ml Abboject IV ONE ×2 (11:00→11:03)
[2023-03-05 11:24] LABS: Amphetamine,Urine NEGATIVE (NEGATIVE); Barbiturate,Urine NEGATIVE (NEGATIVE); Benzodiazepine,Urine POSITIVE (NEGATIVE); Cocaine,Urine NEGATIVE (NEGATIVE); Methadone,Urine NEGATIVE (NEGATIVE); Opiate,Urine POSITIVE (NEGATIVE); PCP,Urine NEGATIVE (NEGATIVE); THC,Urine NEGATIVE (NEGATIVE)
--- NOTE | 2023-03-05 11:34 | XRAY ---
Indication: Left lower quadrant pain radiating left groin/scrotum. Multiple contiguous axial images obtained through the abdomen and pelvis using 80 cc Isovue 370 contrast. Comparison: None Lung bases demonstrates mild dependent atelectasis. No infiltrate or effusion. Heart not enlarged. Stomach mildly distended with food. Noncontrasted stomach and bowel loops appear nonobstructed with normal appendix. Mild diffuse scattered colonic fecal debris greatest in ascending colon. Mild scattered descending and sigmoid diverticulosis without diverticulitis. No free fluid/air. Gallbladder partially contracted without gallstones. A few hepatic cysts, largest 3 cm in left lobe. Both kidneys enhance and excrete with bilateral renal cysts, largest right midpole measuring 2.3 cm. Remaining liver, gallbladder, pancreas, spleen, adrenal glands, kidneys, ureters, and bladder are unremarkable. Moderate scattered aortoiliac calcifications. No AAA or pathologic retroperitoneal lymphadenopathy. Osseous structures intact with osteopenia, mild/moderate multilevel degenerative spondylosis, bilateral L5 spondylolysis with 3-4 mm anterolisthesis, and minimal dextroscoliosis. No ventral or inguinal hernias. Impression: 1. Mild diffuse fecal stasis, colonic diverticulosis without diverticulitis, hepatic/renal cysts, arteriosclerotic disease, and chronic bony findings. 2. Remaining CT abdomen/pelvis with contrast exam is negative.
[2023-03-05 11:36] LABS: Bacteria None Seen /HPF (None Seen); Epithelial Cells None Seen /HPF (None Seen); Hyaline Casts NONE SEEN /LPF (0-2); RBC 0-2 /HPF (0-5); WBC 0-2 /HPF (0-5)
[2023-03-05 11:39] LABS: Appearance Clear (Clear); Bilirubin Negative (Negative); Blood Negative (Negative); Glucose, Urine Negative (Negative); Ketones Negative (Negative); Leukocyte Esterase Negative (Negative); Nitrite Negative (Negative); Ph 5.5 (4.6-8.0); Protein,Urine Dip Negative (Negative)
[2023-03-05 11:40] LABS: ADD URINE CULTURE? NO (NO)
--- NOTE | 2023-03-05 12:45 | XRAY ---
Indication: Pain. Two-dimensional sonogram and color Doppler imaging of the major venous vessels of the left and right leg performed. Comparison: None No thrombus seen in the examined deep venous vessels of the left and right leg including greater saphenous vein. Veins demonstrate normal compressibility. Venous waveforms are normal with and without augmentation. Impression: Left and right legs negative for DVT.
--- NOTE | 2023-03-05 12:48 | XRAY ---
Indication: Pain. Two-dimensional testicular sonogram performed. Comparison: None Both testicles menstruates normal color perfusion. Right testicle measures 3.3 x 1.9 x 3.3 cm and the left measures 3.7 x 2.1 x 2.7 cm. Left testicle demonstrates 3 mm peripheral tunica albuginea cyst. No other focal solid/cystic intratesticular mass. Left epididymis demonstrates cluster of anechoic cysts, largest 2.8 x 2.0 x 2.7 cm and smallest 7 mm. Right epididymis sonographically unremarkable. No suspicious solid extratesticular mass or abnormal hydrocele. Impression: Cluster left epididymal cysts. Tiny left testicle tunica albuginea cyst. Negative sonogram right testicle.
[2023-03-05 12:53] LABS: ALBUMIN 3.3 g/dL (3.5-5.0); ALKALINE PHOSPHATASE 49 U/L (38-126); ANION GAP 12.7 MEQ/L (5-15); BLOOD UREA NITROGEN 28 mg/dL (9-20); CHLORIDE 110 mmol/L (98-107); Calcium 8.5 mg/dL (8.4-10.2); Carbon Dioxide 20 mmol/L (22-30); Creatinine 1 1.16 mg/dL (0.66-1.25); EST GLOMERULAR FILTRATION RATE > 60.0 ML/MIN; Glucose 71 mg/dL (74-106); Potassium 5.5 mmol/L (3.5-5.1); SGOT/AST 23 U/L (17-59); SGPT/ALT 22 U/L (0-50); SODIUM 136 mmol/L (137-145); Total Protein 5.8 g/dL (6.3-8.2)
--- NOTE | 2023-03-05 14:27 | PCM.HP ---
History of Present Illness - Chief Complaint Chief Complaint: Inguinal pain Date: 03/05/23 History of Present Illness: is a 72 year old male with a pmhx of HTN, HLD, DVT right leg, [place] with cardiac stents presenting with complaints of leg groin pain. Onset at 2 a.m. this morning. Pain is throbbing/dull with radiation to the LLE. Ambulation is an aggravating factor. Relief with pain medications. Patient states he has never had an episode similar. In ER patient was bradycardic with HR in the 30's and 40's, 98% on RA, afebrile, and normotensive. Lab finding remarkable for hgb of 10.8, plt count of 132, sodium level at 136, potassium at 5.5, chloride at 110, carbon dioxide at 20 and glucose level at 71. Urinalysis unremarkable. US/Testicles showed cluster left epididymal cysts. Tiny left testicle tunica albuginea cyst. Negative right testicle. Venous doppler negative for DVT. CT abd/pelvis noted mild diffuse fecal stasis, colonic diverticulosis without diverticulitis, hepatic/renal cysts, arteriosclerotic disease, and chronic bony findings. Patient was given calcium gluconate w/ insulin for hyperkalemia/ kayexylate/ zofran, as well as zofran and dilaudid. PCP: [facility]: Khalida Ruiz - Review of Systems Constitutional: No Symptoms Eyes: No Symptoms Ears, Nose, & Throat: No Symptoms Respiratory: No Symptoms Cardiac: Edema (BLE edema trace) Abdominal/Gastrointestinal: Other (Left groin pain) Genitourinary Symptoms: No Symptoms, Testicle Pain Skin: No Symptoms Neurological: No Symptoms Psychological: No Symptoms Medications & Allergies Home Medications: Home Medication List Aspirin EC 81 mg [Ecotrin 81 mg] 1 tab PO HS 03/05/23 [History Confirmed 03/05/23] Clopidogrel Bisulfate [PLAVIX Tablet] 1 tab PO HS 03/05/23 [History Confirmed 03/05/23] Ezetimibe 10 mg [Zetia 10 MG] 1 tab PO HS 03/05/23 [History Confirmed 03/05/23] Lisinopril/Hydrochlorothiazide [Lisinopril-Hctz 20-12.5 mg Tab] 1 tab PO BID 03/05/23 [History Confirmed 03/05/23] Metoprolol Tartrate 50 mg [Lopressor 50 MG] 1 tab PO BID 03/05/23 [History Confirmed 03/05/23] PARoxetine HCL [Paroxetine HCl] 1 tab PO HS 03/05/23 [History Confirmed 03/05/23] Rosuvastatin Calcium 1 tab PO HS 03/05/23 [History Confirmed 03/05/23] Allergies/Adverse Reactions: Allergies Allergy/AdvReac Type Severity Reaction Status Date / Time Penicillins Allergy Verified 03/05/23 09:04 - Past Medical History Past Medical History: Yes Neurological History: No Pertinent History ENT History: No Pertinent History Cardiac History: High Cholesterol, Hypertension, Myocardial Infarction ([place]) Respiratory History: No Pertinent History Endocrine Medical History: No Pertinent History Musculoskelatal History: Arthritis GI Medical History: No Pertinent History History: No Pertinent History Pyscho-Social History: Anxiety, Depression Male Reproductive Disorders: No Pertinent History Comment: SHIKHA, DVT right leg - Past Surgical History Past Surgical History: Yes (knee, shoulder, cardiac stenting) Cardiac History: Cardiac Catheterization, Cardiac Stent Respiratory Surgery: No Pertinent History GI Surgical History: No Pertinent History Genitourinary Surgical Hx: No Pertinent History Musculskeletal Surgical Hx: Orthopedic Surgery Other Surgical History: knee replacement - Social History Smoking Status: Current some day smoker How long have you smoked: Years Exposure to second hand smoke: No Alcohol: Rarely Drug Use: none - Physical Exam Vital Signs: Vital Signs - 24 hr Temp Pulse Resp BP BP Pulse Ox 03/05/23 13:41 95 03/05/23 13:30 39 L 11 L 107/75 98 03/05/23 12:30 39 L 14 125/42 96 03/05/23 12:00 39 L 12 115/56 96 03/05/23 11:31 42 L 13 142/39 94 L 03/05/23 11:04 44 L 16 148/57 95 03/05/23 11:03 48 L 19 148/57 03/05/23 10:31 43 L 13 118/50 94 L 03/05/23 10:01 44 L 9 L 120/48 94 L 03/05/23 09:30 131/50 95 03/05/23 09:03 103/60 95 03/05/23 08:49 97.4 F 48 L 18 103/60 95 General Appearance: mild distress Neurologic Exam: alert, oriented x 3, cooperative Eye Exam: PERRL/EOMI Respiratory Exam: normal breath sounds Cardiovascular Exam: regular rate/rhythm, normal heart sounds Gastrointestinal/Abdomen Exam: soft, normal bowel sounds, other (TTP left groin with palpable mass) Male Genitalia Exam: normal genitalia, hernia, testicular tenderness Rectal Exam: deferred Skin Exam: normal color Results - Labs Lab/Micro Results: Lab Results-Last 24 Hours 03/05/23 03/05/23 03/05/23 Range/Units 08:59 09:30 09:30 WBC 7.6 (4.0-10.5) x10^3/uL RBC 3.20 L (4.1-5.6) x10^6/uL Hgb 10.8 L (12.5-18.0) g/dL Hct 32.4 L (42-50) % MCV 101.3 H (78-100) fL MCH 33.8 H (26-32) pg MCHC 33.3 (32-36) g/dL RDW 13.8 (11.5-14.0) % Plt Count 132 L (150-450) x10^3/uL MPV 10.5 (7.5-11.0) fL Gran % 67.7 H (36.0-66.0) % Immature Gran % (Auto) 0.3 (0.00-0.4) % Nucleat RBC Rel Count 0.0 (0.00-0.1) % Eos # (Auto) 0.22 (0-0.5) x10^3/uL Immature Gran # (Auto) 0.02 (0.00-0.03) x10^3u/L Absolute Lymphs (auto) 1.37 (1.0-4.6) x10^3/uL Absolute Monos (auto) 0.80 (0.0-1.3) x10^3/uL Absolute Nucleated RBC 0.00 (0.00-0.01) x10^3u/L Lymphocytes % 18.1 L (24.0-44.0) % Monocytes % 10.6 (0.0-12.0) % Eosinophils % 2.9 (0.00-5.0) % Basophils % 0.4 (0.0-0.4) % Absolute Granulocytes 5.11 (1.4-6.9) x10^3/uL Basophils # 0.03 (0-0.4) x10^3/uL Sodium 134 L (137-145) mmol/L Potassium 6.3 H* (3.5-5.1) mmol/L Chloride 108 H (98-107) mmol/L Carbon Dioxide 20 L (22-30) mmol/L Anion Gap 12.0 (5-15) MEQ/L BUN 32 H (9-20) mg/dL Creatinine 1.31 H (0.66-1.25) mg/dL Estimated GFR 56.8 ML/MIN Glucose 100 (74-106) mg/dL Lactic Acid 0.7 (0.4-2.0) Calcium 8.6 (8.4-10.2) mg/dL Total Bilirubin 0.30 (0.2-1.3) mg/dL AST 29 (17-59) U/L ALT 23 (0-50) U/L Alkaline Phosphatase 55 (38-126) U/L Serum Total Protein 6.2 L (6.3-8.2) g/dL Albumin 3.6 (3.5-5.0) g/dL Amylase 77 (30-110) U/L Lipase 104 (23-300) U/L Urine Color (Yellow) Urine Appearance (Clear) Urine pH (4.6-8.0) Ur Specific [place] (1.005-1.030) Urine Protein (Negative) Urine Glucose (UA) (Negative) mg/dL Urine Ketones (Negative) Urine Blood (Negative) Urine Nitrite (Negative) Urine Bilirubin (Negative) Urine Urobilinogen (0.2) mg/dL Ur Leukocyte Esterase (Negative) U Hyaline Cast (Auto) (0-2) /LPF Urine Microscopic RBC (0-5) /HPF Urine Microscopic WBC (0-5) /HPF Ur Epithelial Cells (None Seen) /HPF Urine Bacteria (None Seen) /HPF Urine Culture Reflexed (NO) Urine Opiates Level (NEGATIVE) Ur Methadone (NEGATIVE) Urine Barbiturates (NEGATIVE) Ur Phencyclidine (PCP) (NEGATIVE) Urine Amphetamine (NEGATIVE) U Benzodiazepine Level (NEGATIVE) Urine Cocaine (NEGATIVE) Urine Marijuana (THC) (NEGATIVE) 03/05/23 03/05/23 03/05/23 Range/Units 10:14 11:03 11:03 WBC (4.0-10.5) x10^3/uL RBC (4.1-5.6) x10^6/uL Hgb (12.5-18.0) g/dL Hct (42-50) % MCV (78-100) fL MCH (26-32) pg MCHC (32-36) g/dL RDW (11.5-14.0) % Plt Count (150-450) x10^3/uL MPV (7.5-11.0) fL Gran % (36.0-66.0) % Immature Gran % (Auto) (0.00-0.4) % Nucleat RBC Rel Count (0.00-0.1) % Eos # (Auto) (0-0.5) x10^3/uL Immature Gran # (Auto) (0.00-0.03) x10^3u/L Absolute Lymphs (auto) (1.0-4.6) x10^3/uL Absolute Monos (auto) (0.0-1.3) x10^3/uL Absolute Nucleated RBC (0.00-0.01) x10^3u/L Lymphocytes % (24.0-44.0) % Monocytes % (0.0-12.0) % Eosinophils % (0.00-5.0) % Basophils % (0.0-0.4) % Absolute Granulocytes (1.4-6.9) x10^3/uL Basophils # (0-0.4) x10^3/uL Sodium (137-145) mmol/L Potassium 6.8 H* (3.5-5.1) mmol/L Chloride (98-107) mmol/L Carbon Dioxide (22-30) mmol/L Anion Gap (5-15) MEQ/L BUN (9-20) mg/dL Creatinine (0.66-1.25) mg/dL Estimated GFR ML/MIN Glucose (74-106) mg/dL Lactic Acid (0.4-2.0) Calcium (8.4-10.2) mg/dL Total Bilirubin (0.2-1.3) mg/dL AST (17-59) U/L ALT (0-50) U/L Alkaline Phosphatase (38-126) U/L Serum Total Protein (6.3-8.2) g/dL Albumin (3.5-5.0) g/dL Amylase (30-110) U/L Lipase (23-300) U/L Urine Color Yellow (Yellow) Urine Appearance Clear (Clear) Urine pH 5.5 (4.6-8.0) Ur Specific [place] 1.020 (1.005-1.030) Urine Protein Negative (Negative) Urine Glucose (UA) Negative (Negative) mg/dL Urine Ketones Negative (Negative) Urine Blood Negative (Negative) Urine Nitrite Negative (Negative) Urine Bilirubin Negative (Negative) Urine Urobilinogen 1.0 A (0.2) mg/dL Ur Leukocyte Esterase Negative (Negative) U Hyaline Cast (Auto) NONE SEEN (0-2) /LPF Urine Microscopic RBC 0-2 (0-5) /HPF Urine Microscopic WBC 0-2 (0-5) /HPF Ur Epithelial Cells None Seen (None Seen) /HPF Urine Bacteria None Seen (None Seen) /HPF Urine Culture Reflexed NO (NO) Urine Opiates Level POSITIVE (NEGATIVE) Ur Methadone NEGATIVE (NEGATIVE) Urine Barbiturates NEGATIVE (NEGATIVE) Ur Phencyclidine (PCP) NEGATIVE (NEGATIVE) Urine Amphetamine NEGATIVE (NEGATIVE) U Benzodiazepine Level POSITIVE (NEGATIVE) Urine Cocaine NEGATIVE (NEGATIVE) Urine Marijuana (THC) NEGATIVE (NEGATIVE) 03/05/23 Range/Units 12:38 WBC (4.0-10.5) x10^3/uL RBC (4.1-5.6) x10^6/uL Hgb (12.5-18.0) g/dL Hct (42-50) % MCV (78-100) fL MCH (26-32) pg MCHC (32-36) g/dL RDW (11.5-14.0) % Plt Count (150-450) x10^3/uL MPV (7.5-11.0) fL Gran % (36.0-66.0) % Immature Gran % (Auto) (0.00-0.4) % Nucleat RBC Rel Count (0.00-0.1) % Eos # (Auto) (0-0.5) x10^3/uL Immature Gran # (Auto) (0.00-0.03) x10^3u/L Absolute Lymphs (auto) (1.0-4.6) x10^3/uL Absolute Monos (auto) (0.0-1.3) x10^3/uL Absolute Nucleated RBC (0.00-0.01) x10^3u/L Lymphocytes % (24.0-44.0) % Monocytes % (0.0-12.0) % Eosinophils % (0.00-5.0) % Basophils % (0.0-0.4) % Absolute Granulocytes (1.4-6.9) x10^3/uL Basophils # (0-0.4) x10^3/uL Sodium 136 L (137-145) mmol/L Potassium 5.5 H (3.5-5.1) mmol/L Chloride 110 H (98-107) mmol/L Carbon Dioxide 20 L (22-30) mmol/L Anion Gap 12.7 (5-15) MEQ/L BUN 28 H (9-20) mg/dL Creatinine 1.16 (0.66-1.25) mg/dL Estimated GFR > 60.0 ML/MIN Glucose 71 L (74-106) mg/dL Lactic Acid (0.4-2.0) Calcium 8.5 (8.4-10.2) mg/dL Total Bilirubin 0.30 (0.2-1.3) mg/dL AST 23 (17-59) U/L ALT 22 (0-50) U/L Alkaline Phosphatase 49 (38-126) U/L Serum Total Protein 5.8 L (6.3-8.2) g/dL Albumin 3.3 L (3.5-5.0) g/dL Amylase (30-110) U/L Lipase (23-300) U/L Urine Color (Yellow) Urine Appearance (Clear) Urine pH (4.6-8.0) Ur Specific [place] (1.005-1.030) Urine Protein (Negative) Urine Glucose (UA) (Negative) mg/dL Urine Ketones (Negative) Urine Blood (Negative) Urine Nitrite (Negative) Urine Bilirubin (Negative) Urine Urobilinogen (0.2) mg/dL Ur Leukocyte Esterase (Negative) U Hyaline Cast (Auto) (0-2) /LPF Urine Microscopic RBC (0-5) /HPF Urine Microscopic WBC (0-5) /HPF Ur Epithelial Cells (None Seen) /HPF Urine Bacteria (None Seen) /HPF Urine Culture Reflexed (NO) Urine Opiates Level (NEGATIVE) Ur Methadone (NEGATIVE) Urine Barbiturates (NEGATIVE) Ur Phencyclidine (PCP) (NEGATIVE) Urine Amphetamine (NEGATIVE) U Benzodiazepine Level (NEGATIVE) Urine Cocaine (NEGATIVE) Urine Marijuana (THC) (NEGATIVE) - Radiology Impressions Radiology Exams & Impressions: Radiology Procedures Category Date Time Status ABDOMEN AND PELVIS W CONTRAST [CT] Stat Exams 03/05/23 09:00 Completed TESTICLE [US] Stat Exams 03/05/23 11:41 Completed VENOUS BILATERAL EXTREMITY [US] Stat Exams 03/05/23 11:42 Completed Assessment/Plan (1) Hyperkalemia Current Visit: Yes Status: Acute Assessment & Plan: -Tele -Treatment in ER with calcium gluconate/insulin/kayexalate -Will repeat bmp and continue to monitor closely -Will review home meds as possible etiology Code(s): E87.5 - HYPERKALEMIA (2) Left inguinal pain Current Visit: Yes Status: Acute Assessment & Plan: -Imaging reviewed and essentially unremarkable -Dr. Gino Holman will see patient tomorrow, will keep NPO after midnight -Pain managment with dilaudid for now while NPO Code(s): R10.32 - LEFT LOWER QUADRANT PAIN (3) Bradycardia Current Visit: Yes Status: Acute Assessment & Plan: -Could be secondary to BB, will hold for now -Patient asymptomatic -Will continue to observe, check TSH, Trops, MG - EKG with rate of 44, mild prolongation of pr interval VTE: bilateral SCD will hold blood thinners for now until surgical consultation [place] decision maker: Korina (daughter) [phone] Code(s): R00.1 - BRADYCARDIA, UNSPECIFIED
[2023-03-05] MEDS ORDERED: Nicoderm CQ 21 MG TOP SCH (15:30)
[2023-03-05 16:29] LABS: MAGNESIUM 1.7 mg/dL (1.6-2.3); TROPONIN < 0.012 ng/mL (0.000-0.034); TSH, 3RD Generation 0.861 mIU/L (0.47-4.68)
[2023-03-05] MEDS: Hydromorphone 1 mg/ml Injection IV PRN (16:54)
[2023-03-05 20:03] LABS: ANION GAP 12.8 MEQ/L (5-15); BLOOD UREA NITROGEN 27 mg/dL (9-20); CHLORIDE 109 mmol/L (98-107); Calcium 8.7 mg/dL (8.4-10.2); Carbon Dioxide 20 mmol/L (22-30); Creatinine 1 0.98 mg/dL (0.66-1.25); EST GLOMERULAR FILTRATION RATE > 60.0 ML/MIN; Glucose 96 mg/dL (74-106); SODIUM 137 mmol/L (137-145)
[2023-03-05] MEDS: Paxil 20 MG PO SCH (22:09)
[2023-03-05] MEDS: Zetia 10 MG PO SCH (22:09)
[2023-03-05] MEDS: ZOCOR 20MG PO SCH (22:10)
[2023-03-06] MEDS: Zofran 4 MG/2 ML VIAL IV PRN ×3 (01:43→13:24)
[2023-03-06] MEDS: Hydromorphone 1 mg/ml Injection IV PRN ×4 (01:43→22:16)
--- NOTE | 2023-03-06 05:22 | PCM.NOTE ---
Date and Time: 03/06/23518 Subjective Assessment: is a 72 year old male with a pmhx of HTN, HLD, DVT right leg, [place] with cardiac stents presenting with complaints of leg groin pain. Onset at 2 a.m 03/05/23. Pain is throbbing/dull with radiation to the LLE. Ambulation is an aggravating factor. Relief with pain medications. Patient states he has never had an episode similar. Palpable left inguinal mass CT and dopplers negative for etiology, findings did include mild diffuse fecal statsis, colonic diverticulosis without diverticulitis, hepatic/renal cysts, arteriosclerotic disease, and chronic bony findings. Surgery consult pending. MRI pelvis ordered and pending completion. Toradol added for pain relief. - Review of Systems Constitutional: No Symptoms Eyes: No Symptoms Ears, Nose, & Throat: No Symptoms Respiratory: No Symptoms Cardiac: No Symptoms Abdominal/Gastrointestinal: Other (left inguinal pain with radiation to left thigh) Genitourinary Symptoms: No Symptoms Musculoskeletal: No Symptoms Skin: No Symptoms Neurological: No Symptoms Psychological: No Symptoms Endocrine: No Symptoms Hematologic/Lymphatic: No Symptoms Objective Exam General Appearance: moderate distress Neurologic Exam: alert, oriented x 3, cooperative Skin Exam: normal color Eye Exam: PERRL Ears, Nose, Throat Exam: normal ENT inspection Respiratory Exam: normal breath sounds, lungs clear Cardiovascular Exam: regular rate/rhythm, normal heart sounds Gastrointestinal/Abdomen Exam: soft, normal bowel sounds Extremity Exam: normal inspection, other (TTP left inguinal region/ no palpable mass noted on exam) Male Genitalia Exam: testicular tenderness OBJECTIVE DATA Vital Signs: Vital Signs - 24 hr Temp Pulse Resp BP BP Pulse Ox 03/06/23 04:00 97.8 F 53 L 16 149/69 95 03/06/23 00:00 18 03/05/23 23:32 97.7 F 51 L 18 159/65 96 03/05/23 20:00 97.0 F 51 L 18 149/67 97 03/05/23 16:11 16 03/05/23 14:12 97.2 F 39 L 18 139/78 92 L 03/05/23 13:41 95 03/05/23 13:30 39 L 11 L 107/75 98 03/05/23 12:30 39 L 14 125/42 96 03/05/23 12:00 39 L 12 115/56 96 03/05/23 11:31 42 L 13 142/39 94 L 03/05/23 11:04 44 L 16 148/57 95 03/05/23 11:03 48 L 19 148/57 03/05/23 10:31 43 L 13 118/50 94 L 03/05/23 10:01 44 L 9 L 120/48 94 L 03/05/23 09:30 131/50 95 03/05/23 09:03 103/60 95 03/05/23 08:49 97.4 F 48 L 18 103/60 95 Pain Assessment - Last Documented Pain Intensity 4 Pain Scale Used 0-10 Pain Scale Intake and Output: Intake & Output 03/03/23 03/04/23 03/05/23 03/06/23 11:59 11:59 11:59 11:59 Intake Total 700 Output Total 750 Balance -50 Weight 93.3 kg 93.5 kg Lab Results: Lab Results-Last 24 Hours 03/05/23 03/05/23 03/05/23 Range/Units 08:59 09:30 09:30 WBC 7.6 (4.0-10.5) x10^3/uL RBC 3.20 L (4.1-5.6) x10^6/uL Hgb 10.8 L (12.5-18.0) g/dL Hct 32.4 L (42-50) % MCV 101.3 H (78-100) fL MCH 33.8 H (26-32) pg MCHC 33.3 (32-36) g/dL RDW 13.8 (11.5-14.0) % Plt Count 132 L (150-450) x10^3/uL MPV 10.5 (7.5-11.0) fL Gran % 67.7 H (36.0-66.0) % Immature Gran % (Auto) 0.3 (0.00-0.4) % Nucleat RBC Rel Count 0.0 (0.00-0.1) % Eos # (Auto) 0.22 (0-0.5) x10^3/uL Immature Gran # (Auto) 0.02 (0.00-0.03) x10^3u/L Absolute Lymphs (auto) 1.37 (1.0-4.6) x10^3/uL Absolute Monos (auto) 0.80 (0.0-1.3) x10^3/uL Absolute Nucleated RBC 0.00 (0.00-0.01) x10^3u/L Lymphocytes % 18.1 L (24.0-44.0) % Monocytes % 10.6 (0.0-12.0) % Eosinophils % 2.9 (0.00-5.0) % Basophils % 0.4 (0.0-0.4) % Absolute Granulocytes 5.11 (1.4-6.9) x10^3/uL Basophils # 0.03 (0-0.4) x10^3/uL Sodium 134 L (137-145) mmol/L Potassium 6.3 H* (3.5-5.1) mmol/L Chloride 108 H (98-107) mmol/L Carbon Dioxide 20 L (22-30) mmol/L Anion Gap 12.0 (5-15) MEQ/L BUN 32 H (9-20) mg/dL Creatinine 1.31 H (0.66-1.25) mg/dL Estimated GFR 56.8 ML/MIN Glucose 100 (74-106) mg/dL Lactic Acid 0.7 (0.4-2.0) Calcium 8.6 (8.4-10.2) mg/dL Magnesium (1.6-2.3) mg/dL Total Bilirubin 0.30 (0.2-1.3) mg/dL AST 29 (17-59) U/L ALT 23 (0-50) U/L Alkaline Phosphatase 55 (38-126) U/L Troponin I (0.000-0.034) ng/mL Serum Total Protein 6.2 L (6.3-8.2) g/dL Albumin 3.6 (3.5-5.0) g/dL Amylase 77 (30-110) U/L Lipase 104 (23-300) U/L TSH 3rd Generation (0.47-4.68) mIU/L Urine Color (Yellow) Urine Appearance (Clear) Urine pH (4.6-8.0) Ur Specific [place] (1.005-1.030) Urine Protein (Negative) Urine Glucose (UA) (Negative) mg/dL Urine Ketones (Negative) Urine Blood (Negative) Urine Nitrite (Negative) Urine Bilirubin (Negative) Urine Urobilinogen (0.2) mg/dL Ur Leukocyte Esterase (Negative) U Hyaline Cast (Auto) (0-2) /LPF Urine Microscopic RBC (0-5) /HPF Urine Microscopic WBC (0-5) /HPF Ur Epithelial Cells (None Seen) /HPF Urine Bacteria (None Seen) /HPF Urine Culture Reflexed (NO) Urine Opiates Level (NEGATIVE) Ur Methadone (NEGATIVE) Urine Barbiturates (NEGATIVE) Ur Phencyclidine (PCP) (NEGATIVE) Urine Amphetamine (NEGATIVE) U Benzodiazepine Level (NEGATIVE) Urine Cocaine (NEGATIVE) Urine Marijuana (THC) (NEGATIVE) 03/05/23 03/05/23 03/05/23 Range/Units 10:14 11:03 11:03 WBC (4.0-10.5) x10^3/uL RBC (4.1-5.6) x10^6/uL Hgb (12.5-18.0) g/dL Hct (42-50) % MCV (78-100) fL MCH (26-32) pg MCHC (32-36) g/dL RDW (11.5-14.0) % Plt Count (150-450) x10^3/uL MPV (7.5-11.0) fL Gran % (36.0-66.0) % Immature Gran % (Auto) (0.00-0.4) % Nucleat RBC Rel Count (0.00-0.1) % Eos # (Auto) (0-0.5) x10^3/uL Immature Gran # (Auto) (0.00-0.03) x10^3u/L Absolute Lymphs (auto) (1.0-4.6) x10^3/uL Absolute Monos (auto) (0.0-1.3) x10^3/uL Absolute Nucleated RBC (0.00-0.01) x10^3u/L Lymphocytes % (24.0-44.0) % Monocytes % (0.0-12.0) % Eosinophils % (0.00-5.0) % Basophils % (0.0-0.4) % Absolute Granulocytes (1.4-6.9) x10^3/uL Basophils # (0-0.4) x10^3/uL Sodium (137-145) mmol/L Potassium 6.8 H* (3.5-5.1) mmol/L Chloride (98-107) mmol/L Carbon Dioxide (22-30) mmol/L Anion Gap (5-15) MEQ/L BUN (9-20) mg/dL Creatinine (0.66-1.25) mg/dL Estimated GFR ML/MIN Glucose (74-106) mg/dL Lactic Acid (0.4-2.0) Calcium (8.4-10.2) mg/dL Magnesium (1.6-2.3) mg/dL Total Bilirubin (0.2-1.3) mg/dL AST (17-59) U/L ALT (0-50) U/L Alkaline Phosphatase (38-126) U/L Troponin I (0.000-0.034) ng/mL Serum Total Protein (6.3-8.2) g/dL Albumin (3.5-5.0) g/dL Amylase (30-110) U/L Lipase (23-300) U/L TSH 3rd Generation (0.47-4.68) mIU/L Urine Color Yellow (Yellow) Urine Appearance Clear (Clear) Urine pH 5.5 (4.6-8.0) Ur Specific [place] 1.020 (1.005-1.030) Urine Protein Negative (Negative) Urine Glucose (UA) Negative (Negative) mg/dL Urine Ketones Negative (Negative) Urine Blood Negative (Negative) Urine Nitrite Negative (Negative) Urine Bilirubin Negative (Negative) Urine Urobilinogen 1.0 A (0.2) mg/dL Ur Leukocyte Esterase Negative (Negative) U Hyaline Cast (Auto) NONE SEEN (0-2) /LPF Urine Microscopic RBC 0-2 (0-5) /HPF Urine Microscopic WBC 0-2 (0-5) /HPF Ur Epithelial Cells None Seen (None Seen) /HPF Urine Bacteria None Seen (None Seen) /HPF Urine Culture Reflexed NO (NO) Urine Opiates Level POSITIVE (NEGATIVE) Ur Methadone NEGATIVE (NEGATIVE) Urine Barbiturates NEGATIVE (NEGATIVE) Ur Phencyclidine (PCP) NEGATIVE (NEGATIVE) Urine Amphetamine NEGATIVE (NEGATIVE) U Benzodiazepine Level POSITIVE (NEGATIVE) Urine Cocaine NEGATIVE (NEGATIVE) Urine Marijuana (THC) NEGATIVE (NEGATIVE) 03/05/23 03/05/23 03/05/23 Range/Units 12:38 15:40 19:35 WBC (4.0-10.5) x10^3/uL RBC (4.1-5.6) x10^6/uL Hgb (12.5-18.0) g/dL Hct (42-50) % MCV (78-100) fL MCH (26-32) pg MCHC (32-36) g/dL RDW (11.5-14.0) % Plt Count (150-450) x10^3/uL MPV (7.5-11.0) fL Gran % (36.0-66.0) % Immature Gran % (Auto) (0.00-0.4) % Nucleat RBC Rel Count (0.00-0.1) % Eos # (Auto) (0-0.5) x10^3/uL Immature Gran # (Auto) (0.00-0.03) x10^3u/L Absolute Lymphs (auto) (1.0-4.6) x10^3/uL Absolute Monos (auto) (0.0-1.3) x10^3/uL Absolute Nucleated RBC (0.00-0.01) x10^3u/L Lymphocytes % (24.0-44.0) % Monocytes % (0.0-12.0) % Eosinophils % (0.00-5.0) % Basophils % (0.0-0.4) % Absolute Granulocytes (1.4-6.9) x10^3/uL Basophils # (0-0.4) x10^3/uL Sodium 136 L 137 (137-145) mmol/L Potassium 5.5 H 5.0 (3.5-5.1) mmol/L Chloride 110 H 109 H (98-107) mmol/L Carbon Dioxide 20 L 20 L (22-30) mmol/L Anion Gap 12.7 12.8 (5-15) MEQ/L BUN 28 H 27 H (9-20) mg/dL Creatinine 1.16 0.98 (0.66-1.25) mg/dL Estimated GFR > 60.0 > 60.0 ML/MIN Glucose 71 L 96 (74-106) mg/dL Lactic Acid (0.4-2.0) Calcium 8.5 8.7 (8.4-10.2) mg/dL Magnesium 1.7 (1.6-2.3) mg/dL Total Bilirubin 0.30 (0.2-1.3) mg/dL AST 23 (17-59) U/L ALT 22 (0-50) U/L Alkaline Phosphatase 49 (38-126) U/L Troponin I < 0.012 (0.000-0.034) ng/mL Serum Total Protein 5.8 L (6.3-8.2) g/dL Albumin 3.3 L (3.5-5.0) g/dL Amylase (30-110) U/L Lipase (23-300) U/L TSH 3rd Generation 0.861 (0.47-4.68) mIU/L Urine Color (Yellow) Urine Appearance (Clear) Urine pH (4.6-8.0) Ur Specific [place] (1.005-1.030) Urine Protein (Negative) Urine Glucose (UA) (Negative) mg/dL Urine Ketones (Negative) Urine Blood (Negative) Urine Nitrite (Negative) Urine Bilirubin (Negative) Urine Urobilinogen (0.2) mg/dL Ur Leukocyte Esterase (Negative) U Hyaline Cast (Auto) (0-2) /LPF Urine Microscopic RBC (0-5) /HPF Urine Microscopic WBC (0-5) /HPF Ur Epithelial Cells (None Seen) /HPF Urine Bacteria (None Seen) /HPF Urine Culture Reflexed (NO) Urine Opiates Level (NEGATIVE) Ur Methadone (NEGATIVE) Urine Barbiturates (NEGATIVE) Ur Phencyclidine (PCP) (NEGATIVE) Urine Amphetamine (NEGATIVE) U Benzodiazepine Level (NEGATIVE) Urine Cocaine (NEGATIVE) Urine Marijuana (THC) (NEGATIVE) Radiology Exams: Radiology Procedures Category Date Time Status ABDOMEN AND PELVIS W CONTRAST [CT] Stat Exams 03/05/23 09:00 Completed TESTICLE [US] Stat Exams 03/05/23 11:41 Completed VENOUS BILATERAL EXTREMITY [US] Stat Exams 03/05/23 11:42 Completed Assessment/Plan (1) Hyperkalemia Current Visit: Yes Status: Acute Assessment & Plan: -Tele -Treatment in ER with calcium gluconate/insulin/kayexalate -Will repeat bmp and continue to monitor closely -Will review home meds as possible etiology 03/06: -resolved Code(s): E87.5 - HYPERKALEMIA (2) Left inguinal pain Current Visit: Yes Status: Acute Assessment & Plan: -Imaging reviewed and essentially unremarkable -Dr. Gino Holman will see patient tomorrow, will keep NPO after midnight -Pain managment with dilaudid for now while NPO 03/06: -MRI pelvis -Surg consult pending -add Toradol for pain managment Code(s): R10.32 - LEFT LOWER QUADRANT PAIN (3) Bradycardia Current Visit: Yes Status: Acute Assessment & Plan: -Could be secondary to BB, will hold for now -Patient asymptomatic -Will continue to observe, check TSH, Trops, MG - EKG with rate of 44, mild prolongation of pr interval 03/06: -Improved, now in the 50's, will continue to monitor VTE: bilateral SCD will hold blood thinners for now until surgical consultation [place] decision maker: Korina (daughter) [phone] Code(s): R00.1 - BRADYCARDIA, UNSPECIFIED
[2023-03-06 05:38] LABS: ALBUMIN 3.7 g/dL (3.5-5.0); ALKALINE PHOSPHATASE 54 U/L (38-126); ANION GAP 12.1 MEQ/L (5-15); BLOOD UREA NITROGEN 23 mg/dL (9-20); CHLORIDE 108 mmol/L (98-107); Calcium 8.9 mg/dL (8.4-10.2); Carbon Dioxide 21 mmol/L (22-30); Creatinine 1 0.95 mg/dL (0.66-1.25); EST GLOMERULAR FILTRATION RATE > 60.0 ML/MIN; Glucose 90 mg/dL (74-106); Potassium 5.1 mmol/L (3.5-5.1); SGOT/AST 25 U/L (17-59); SGPT/ALT 23 U/L (0-50); SODIUM 136 mmol/L (137-145); Total Protein 6.3 g/dL (6.3-8.2)
[2023-03-06 07:43] LABS: Absolute Neutrophil Ct (ANC) 4.08 x10^3/uL (1.4-6.9); BASOPHIL % 0.6 % (0.0-0.4); Basophil (Absolute #) 0.04 x10^3/uL (0-0.4); Eosinophil % 3.1 % (0.00-5.0); Hemoglobin 11.5 g/dL (12.5-18.0); IMMATURE GRAN # 0.01 x10^3u/L (0.00-0.03); IMMATURE GRAN % 0.2 % (0.00-0.4); Lymphocyte (Absolute #) 1.43 x10^3/uL (1.0-4.6); Lymphocytes % 22.5 % (24.0-44.0); Mean Cell Volume 103.7 fL (78-100); Mean Corpuscular Hemoglobin 33.1 pg (26-32); Mean Corpuscular Hgb Concent. 31.9 g/dL (32-36); Mean Platelet Volume 11.3 fL (7.5-11.0); Monocytes % 9.4 % (0.0-12.0); Neutrophil % 64.2 % (36.0-66.0); Platelet Count 133 x10^3/uL (150-450); Red Blood Count 3.47 x10^6/uL (4.1-5.6); Red Cell Distribution Width 13.7 % (11.5-14.0); White Blood Count 6.4 x10^3/uL (4.0-10.5)
[2023-03-06] MEDS ORDERED: Hydromorphone 1 mg/ml Injection IV PRN (07:55)
[2023-03-06] MEDS ORDERED: Nicoderm CQ 21 MG TOP SCH (10:00)
[2023-03-06] MEDS: TORAdol 30 mg Injection IV PRN ×2 (11:01→17:30)
[2023-03-06] MEDS ORDERED: Hydromorphone 1 mg/ml Injection IV ONE (15:45)
--- NOTE | 2023-03-06 17:27 | XRAY ---
Indication: Left inguinal pain. No known injury. Axial and coronal MRI both hips performed using pre-and post T1, T2, and STIR sequences. Post T1 and T2 fat sat images left hip obtained. 15 cc Dotarem contrast used. Comparison: None Hips are bilaterally symmetric without abnormal effusion, acute fracture, suspicious bony lesions, bony remodeling, or evidence for avascular necrosis. Surrounding soft tissues including visualized pelvic contents are unremarkable. Visualized lower lumbar spine, only seen on sagittal sequences, demonstrates broad-based disc bulge involving last 2 levels. Following gadolinium, there is no abnormal soft tissue or bony enhancement. Impression: Broad-based disc bulge last 2 lumbar disc levels better evaluated with dedicated MRI lumbar spine. Otherwise MRI pelvis with contrast exam is negative.
[2023-03-06] MEDS: Zetia 10 MG PO SCH (21:21)
[2023-03-06] MEDS: Paxil 20 MG PO SCH (21:21)
[2023-03-06] MEDS: ZOCOR 20MG PO SCH (21:22)
[2023-03-07] MEDS: TORAdol 30 mg Injection IV PRN ×2 (01:10→07:39)
[2023-03-07] MEDS: Zofran 4 MG/2 ML VIAL IV PRN (01:10)
[2023-03-07] MEDS: Hydromorphone 1 mg/ml Injection IV PRN ×2 (04:47→12:47)
[2023-03-07 06:06] LABS: ALBUMIN 3.4 g/dL (3.5-5.0); ALKALINE PHOSPHATASE 49 U/L (38-126); ANION GAP 13.4 MEQ/L (5-15); BLOOD UREA NITROGEN 29 mg/dL (9-20); CHLORIDE 108 mmol/L (98-107); Calcium 8.6 mg/dL (8.4-10.2); Carbon Dioxide 20 mmol/L (22-30); Creatinine 1 1.24 mg/dL (0.66-1.25); EST GLOMERULAR FILTRATION RATE > 60.0 ML/MIN; Glucose 96 mg/dL (74-106); Potassium 4.6 mmol/L (3.5-5.1); SGOT/AST 26 U/L (17-59); SGPT/ALT 22 U/L (0-50); SODIUM 137 mmol/L (137-145); Total Protein 5.9 g/dL (6.3-8.2)
[2023-03-07 06:17] LABS: Absolute Neutrophil Ct (ANC) 3.84 x10^3/uL (1.4-6.9); BASOPHIL % 0.5 % (0.0-0.4); Basophil (Absolute #) 0.03 x10^3/uL (0-0.4); Eosinophil % 2.2 % (0.00-5.0); Eosinophil (Absolute #) 0.13 x10^3/uL (0-0.5); Hematocrit 33.3 % (42-50); Hemoglobin 10.9 g/dL (12.5-18.0); IMMATURE GRAN # 0.02 x10^3u/L (0.00-0.03); IMMATURE GRAN % 0.3 % (0.00-0.4); Lymphocyte (Absolute #) 1.25 x10^3/uL (1.0-4.6); Lymphocytes % 21.4 % (24.0-44.0); Mean Cell Volume 101.5 fL (78-100); Mean Corpuscular Hemoglobin 33.2 pg (26-32); Mean Corpuscular Hgb Concent. 32.7 g/dL (32-36); Mean Platelet Volume 10.8 fL (7.5-11.0); Monocyte (Absolute #) 0.56 x10^3/uL (0.0-1.3); Monocytes % 9.6 % (0.0-12.0); Platelet Count 127 x10^3/uL (150-450); Red Blood Count 3.28 x10^6/uL (4.1-5.6); Red Cell Distribution Width 13.2 % (11.5-14.0); White Blood Count 5.8 x10^3/uL (4.0-10.5)
[2023-03-07 07:16] VITALS: RESP 16; TEMP 97.5
[2023-03-07] MEDS ORDERED: Zanaflex 4 MG PO PRN (10:59)
[2023-03-07 11:43] VITALS: BP 168/80; PULSE 58; O2SAT 95
--- NOTE | 2023-03-07 12:24 | PCM.DS ---
Discharge Summary Date of Admission: 03/05/23 14:07 Date of Discharge: 03/07/23 Admitting Physician: HIRAM RUBIO MD Consults: Consults on Case 03/06/23 07:33 Consult Surgery ROUTINE Primary Care Provider: OMAR ANTONYYESH Allergies Allergies Penicillins Allergy (Verified 03/05/23 09:04) Hospital Summary - Hospital Course Hospital Course: is a 72 year old male with a pmhx of HTN, HLD, DVT right leg, [place] with cardiac stents who presented 03/05/23 with complaints of leg groin pain. Onset at 2 a.m. Pain was described as throbbing/dull with radiation to the LLE. Ambulation an aggravating factor. Relief with pain medications. Patient stated he has never had an episode similar. CT,MRI pelvis and dopplers negative for etiology, findings did include mild diffuse fecal statsis, colonic diverticulosis without diverticulitis, hepatic/renal cysts, arteriosclerotic disease, and chronic bony findings. MRI pelvis did note broad-base disc bulge in the last two levels of his lumbar spine, otherwise negative. Patient does have chronic back pain for which he is in pain management for. I feel this may be resultant sciatica for which I am recommending follow up with neurosurgery as an outpatient. Pain has been relieved with Toradol during hospitalization. He will discharge today with [facility] as well as tizanidine x 3 day supply, and gabapentin. Patient does receive pain management with Dr. Fontaine and will discuss narcotic pain relief options with him. He was also found with hyperkalemia and bradycardia on admission and was treated with hyperkalemic protocol, no further incidence. HR has improved t 58. Patient is advised follow up with neurosurgery, pain management, and PCP. Most recent assessment and plan: (1) Hyperkalemia Current Visit: Yes Status: Acute Assessment & Plan: -Tele -Treatment in ER with calcium gluconate/insulin/kayexalate -Will repeat bmp and continue to monitor closely -Will review home meds as possible etiology 03/06: -resolved Code(s): E87.5 - HYPERKALEMIA (2) Left inguinal pain Current Visit: Yes Status: Acute Assessment & Plan: -Imaging reviewed and essentially unremarkable -Dr. Gino Holman will see patient tomorrow, will keep NPO after midnight -Pain managment with dilaudid for now while NPO 03/06: -MRI pelvis -Surg consult pending -add Toradol for pain managment 03/07: -neurosurgery as OP -MRI findings discussed above -Pain management as discussed above Code(s): R10.32 - LEFT LOWER QUADRANT PAIN (3) Bradycardia Current Visit: Yes Status: Acute Assessment & Plan: -Could be secondary to BB, will hold for now -Patient asymptomatic -Will continue to observe, check TSH, Trops, MG - EKG with rate of 44, mild prolongation of pr interval 03/06: -Improved, now in the 50's, will continue to monitor New diagnosis hyperkalemia/left inguinal pain New meds: Tizanidine/gabapentin Dispo: Home Follow up PCP/neurosurgery/pain management - Vitals & Intake/Output Vital Signs: Vital Signs Temperature 97.5 F 03/07/23 11:42 Pulse Rate 58 L 03/07/23 11:42 Respiratory Rate 16 03/07/23 11:42 Blood Pressure 168/80 03/07/23 11:42 O2 Sat by Pulse Oximetry 95 03/07/23 11:42 Intake & Output: Intake & Output 03/05/23 03/06/23 03/07/23 03/08/23 11:59 11:59 11:59 11:59 Intake Total 700 360 Output Total 750 50 Balance -50 310 Weight 93.3 kg 93.5 kg - Lab Result Diagrams: 03/07/23 04:54 03/07/23 04:54 Lab Results-Last 24 Hrs: Lab Results-Last 24 Hours 03/07/23 03/07/23 Range/Units 04:54 04:54 WBC 5.8 (4.0-10.5) x10^3/uL RBC 3.28 L (4.1-5.6) x10^6/uL Hgb 10.9 L (12.5-18.0) g/dL Hct 33.3 L (42-50) % MCV 101.5 H (78-100) fL MCH 33.2 H (26-32) pg MCHC 32.7 (32-36) g/dL RDW 13.2 (11.5-14.0) % Plt Count 127 L (150-450) x10^3/uL MPV 10.8 (7.5-11.0) fL Gran % 66.0 (36.0-66.0) % Immature Gran % (Auto) 0.3 (0.00-0.4) % Nucleat RBC Rel Count 0.0 (0.00-0.1) % Eos # (Auto) 0.13 (0-0.5) x10^3/uL Immature Gran # (Auto) 0.02 (0.00-0.03) x10^3u/L Absolute Lymphs (auto) 1.25 (1.0-4.6) x10^3/uL Absolute Monos (auto) 0.56 (0.0-1.3) x10^3/uL Absolute Nucleated RBC 0.00 (0.00-0.01) x10^3u/L Lymphocytes % 21.4 L (24.0-44.0) % Monocytes % 9.6 (0.0-12.0) % Eosinophils % 2.2 (0.00-5.0) % Basophils % 0.5 (0.0-0.4) % Absolute Granulocytes 3.84 (1.4-6.9) x10^3/uL Basophils # 0.03 (0-0.4) x10^3/uL Sodium 137 (137-145) mmol/L Potassium 4.6 (3.5-5.1) mmol/L Chloride 108 H (98-107) mmol/L Carbon Dioxide 20 L (22-30) mmol/L Anion Gap 13.4 (5-15) MEQ/L BUN 29 H (9-20) mg/dL Creatinine 1.24 (0.66-1.25) mg/dL Estimated GFR > 60.0 ML/MIN Glucose 96 (74-106) mg/dL Calcium 8.6 (8.4-10.2) mg/dL Total Bilirubin 0.50 (0.2-1.3) mg/dL AST 26 (17-59) U/L ALT 22 (0-50) U/L Alkaline Phosphatase 49 (38-126) U/L Serum Total Protein 5.9 L (6.3-8.2) g/dL Albumin 3.4 L (3.5-5.0) g/dL - Radiology Exams Ordered Rad Exams-Entire Visit: Radiology Procedures Category Date Time Status MRI PELVIS WITH CONTRAST [MRI] Stat Exams 03/06/23 12:27 Completed TESTICLE [US] Stat Exams 03/05/23 11:41 Completed VENOUS BILATERAL EXTREMITY [US] Stat Exams 03/05/23 11:42 Completed - Procedures and Test Procedures and Tests throughout Hospitalization: Therapy Orders & Screens 03/05/23 15:14 Smoking Cessation Education ONCE Comment: Diagnosis: Inguinal pain Smoking Status: Current some day smoker How long have you smoked: Years Have you smoked in the past 12 months: Yes Approximately how many cigarettes per day: 7 Do you dip or chew tobacco: No 03/07/23 10:32 PT Eval & Treat (MD Order) ONCE Reason for Eval:: PAIN WITH WALKING, NEED WALKER? Diagnosis: Inguinal pain Discharge Exam General Appearance: no apparent distress Neurologic Exam: alert, oriented x 3, cooperative Eye Exam: PERRL Respiratory Exam: normal breath sounds, lungs clear Cardiovascular Exam: regular rate/rhythm, normal heart sounds Gastrointestinal/Abdomen Exam: soft, normal bowel sounds Back Exam: other (TTP at left sacral spine) Extremity Exam: normal inspection Skin Exam: normal color Final Diagnosis/Problem List - Final Discharge Diagnosis/Problem (1) Hyperkalemia Current Visit: Yes Status: Resolved Code(s): E87.5 - HYPERKALEMIA (2) Left inguinal pain Current Visit: Yes Status: Acute Code(s): R10.32 - LEFT LOWER QUADRANT PAIN (3) Bradycardia Current Visit: Yes Status: Chronic Code(s): R00.1 - BRADYCARDIA, UNSPECIFIED - Discharge Disposition: HOME HEALTH SERVICE Condition: Stable Prescriptions: New Gabapentin 300 mg PO CLARIFY 30 Days #87 cap Tizanidine HCl 4 mg [Zanaflex 4 MG] 4 mg PO TID PRN PRN 3 Days #9 tablet PRN Reason: Muscle Spasms Continue PARoxetine HCL [Paroxetine HCl] 1 tab PO HS Lisinopril/Hydrochlorothiazide [Lisinopril-Hctz 20-12.5 mg Tab] 1 tab PO BID Ezetimibe 10 mg [Zetia 10 MG] 1 tab PO HS Clopidogrel Bisulfate [PLAVIX Tablet] 1 tab PO HS Rosuvastatin Calcium 1 tab PO HS Metoprolol Tartrate 50 mg [Lopressor 50 MG] 1 tab PO BID Aspirin EC 81 mg [Ecotrin 81 mg] 1 tab PO HS Instructions: Low Back Pain (DC), Herniated Disc (DC) Follow up with: SAMRA ANTONY MD [Primary Care Provider] - 03/14/23 1:45 pm BRADLEY GOOD [NON-STAFF PHY W/O PRIVILEGES] - OLEG FONTAINE I [NON-STAFF PHY W/O PRIVILEGES] -
--- NOTE | 2023-03-08 08:27 | CONS ---
CONSULT DATE: 03/07/2023 REASON FOR CONSULTATION: For persistent left inguinal pain. HISTORY OF PRESENT ILLNESS: Patient has left inguinal pain. It was debilitating when he started to step out on his left leg, he almost fell to the ground because of the electricity through the entire left side of his body. He is elderly, he is in his 70's. 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 He has some atrophy of the left testicle. He has no distention of any comparable inguinal hernia present. He has had some disc disease. He was told several years ago. He has had a CT and an MRI at this time. On the CT scan, there was no suggestion of any abdominal wall hernia. IMPRESSION: I do not feel there is any abdominal wall hernia present. His epididymitis is mild and chronic and is of minimal to no significance. I think the problem is neurological and I think a neurology referral probably is in order. I don't think there is anything much for urology to do. There is nothing for general surgery to do.
== END 2023-03-07 15:28 | disposition home health service (06) ==
LOC: ED 08:49 → MED SURG 14:07
PROVIDERS: ADMIT Internal Medicine; ATTEND Internal Medicine
DX: E87.5 Hyperkalemia (principal); R10.32 Left lower quadrant pain; R00.1 Bradycardia, unspecified; I10 Essential (primary) hypertension; I25.2 Old myocardial infarction; M54.9 Dorsalgia, unspecified; Z79.899 Other long term (current) drug therapy; Z20.828 Contact with and (suspected) exposure to other viral communicable diseases; Z86.718 Personal history of other venous thrombosis and embolism; Z79.01 Long term (current) use of anticoagulants; Z72.0 Tobacco use
CPT/HCPCS: 36000; 36415; 72196; 74177; 76870; 80048; 80053; 80307; 81001; 82150; 83605; 83690; 83735; 84132; 84443; 84484; 85025; 93005; 93041; 93268; 93970; 96374; 96375; 96376; 97161; 99285; G0378; Q3014; J0612; J1170; J1815; J1885; J2405; A9270-GY

== ENCOUNTER 2024-09-13 19:18 | Observation (INO) | payer MEDICARE, OTHER ==
--- NOTE | 2024-09-13 19:55 | ERPHSYRPT ---
- History of Present Illness Source: patient Exam Limitations: no limitations Patient Subjective Stated Complaint: Chest pain Triage Nursing Assessment: Chest pain Physician History: Last night the patient started having some cough and congestion and fever and chills. He said the cough is nonproductive. Nothing made it better or worse. He was coming into the ER to get evaluated for and then he started having chest pain. He has a history of coronary vascular disease. He said the chest pain was in hisSubsternal area. It radiated to his left shoulder and jaw. He is not having any acute diaphoresis or dyspnea. He got worried that he may be having a [place]. He does not have a history of arrhythmias but he is in A-fib now. He is on aspirin and Plavix.He thinks the symptoms earlier that he was coming in for were probably infectious like the flu were possibly pneumonia. At this time he is more concerned with the chest pain. Allergies/Adverse Reactions: Penicillins Allergy (Verified 03/05/23 09:04) Home Medications: Clopidogrel Bisulfate [PLAVIX Tablet] 1 tab PO HS 03/05/23 [History] Ezetimibe 10 mg [Zetia 10 MG] 1 tab PO HS 03/05/23 [History] Lisinopril/Hydrochlorothiazide [Lisinopril-Hctz 20-12.5 mg Tab] 1 tab PO BID 03/05/23 [History] Metoprolol Tartrate 50 mg [Lopressor 50 MG] 1 tab PO BID 03/05/23 [History] PARoxetine HCL [Paroxetine HCl] 1 tab PO HS 03/05/23 [History] Rosuvastatin Calcium 1 tab PO HS 03/05/23 [History] Hydroxyzine HCl 25 mg [Atarax 25 mg] 25 mg PO QID 09/13/24 [History] Hx Tetanus, Diphtheria Vaccination/Date Given: Yes Hx Influenza Vaccination/Date Given: No Hx Pneumococcal Vaccination/Date Given: No Travel Risk - International Travel Have you traveled outside of the country in past 3 weeks: No - Emerging Infectious Disease Are you exhibiting symptoms associated with any current EIDs: Yes Symptoms: Cough: New Onset, Fever - Review of Systems Constitutional: Chills Eyes: No Symptoms, Foreign Body Sensation Respiratory: Cough Cardiac: Chest Pain Abdominal/Gastrointestinal: No Symptoms All Other Systems: Reviewed and Negative - Past Medical History Pertinent Past Medical History: Yes Neurological History: No Pertinent History ENT History: No Pertinent History Cardiac History: High Cholesterol, Hypertension, Myocardial Infarction ([place]) Respiratory History: No Pertinent History Endocrine Medical History: No Pertinent History Musculoskeletal History: Arthritis GI Medical History: No Pertinent History History: No Pertinent History Psycho-Social History: Anxiety, Depression Male Reproductive Disorders: No Pertinent History Other Medical History: SHIKHA, DVT right leg - Past Surgical History Past Surgical History: Yes (knee, shoulder, cardiac stenting) Neuro Surgical History: No Pertinent History Cardiac: Cardiac Catheterization, Cardiac Stent Respiratory: No Pertinent History Gastrointestinal: No Pertinent History Genitourinary: No Pertinent History Musculoskeletal: Orthopedic Surgery Male Surgical History: No Pertinent History Other Surgical History: knee replacement - Social History Smoking Status: Current some day smoker How long have you smoked: Years Exposure to second hand smoke: No Drug Use: none - Social Determinants of Health Will the patient participate in the screening: Yes Do you worry about a steady place to live?: No Do you have any problems with any of the following?: No known problems In the past 12 months,have you had to go without utilities?: No Transportation Issues: No Has anyone in your support network made you feel unsafe?: No Have you or anyone in your house had to go w/o enough food: No - Nursing Vital Signs Nursing Vital Signs: Initial Vital Signs Pulse Rate 85 09/13/24 19:16 Respiratory Rate 22 09/13/24 19:16 Blood Pressure 157/107 09/13/24 19:16 Pain Scale Pain Intensity 0 - Physical Exam General Appearance: no apparent distress, other (Patient is quite anxious.) Ears, Nose, Throat Exam: normal ENT inspection Neck Exam: normal inspection Respiratory Exam: other (There is consolidation in the right lung. He is having decreased air movement as well.) Cardiovascular Exam: irregular Gastrointestinal/Abdomen Exam: soft, No tenderness Back Exam: normal inspection, normal range of motion Extremity Exam: normal inspection, normal range of motion Neurologic Exam: alert, oriented x 3, cooperative Skin Exam: normal color, warm SpO2: 98 - Course EKG Interpreted by Me: RATE, A-fib, NORMAL ST-T Rhythm Strip: Rate, Atrial Fibrillation Ordered Tests: Active Orders 24 hr Category Date Time Status EKG-ER Only STAT Care 09/13/24 19:41 Active CHEST 1 VIEW (PORTABLE) Stat Exams 09/13/24 19:41 Taken CHEST WITH CONTRAST [CT] Stat Exams 09/13/24 21:13 Completed BLOOD CULTURE Stat Lab 09/13/24 19:56 Received CBC Q48H Lab 09/14/24 06:00 Ordered CBC Q48H Lab 09/16/24 06:00 Ordered CBC Q48H Lab 09/18/24 06:00 Ordered CBC Q48H Lab 09/20/24 07:00 Ordered CBC Q48H Lab 09/22/24 07:00 Ordered CBC Q48H Lab 09/24/24 07:00 Ordered CBC Q48H Lab 09/26/24 07:00 Ordered CBC W DIFF Stat Lab 09/13/24 20:07 Completed CMP Stat Lab 09/13/24 20:07 Completed D-DIMER QUANTITATIVE Stat Lab 09/13/24 20:07 Completed Lactic Acid Stat Lab 09/13/24 19:56 Completed PROTIME WITH INR Stat Lab 09/13/24 20:07 Completed PTT Q4H Lab 09/14/24 01:27 Completed PTT Q4H Lab 09/14/24 05:15 Ordered PTT Q4H Lab 09/14/24 09:15 Ordered PTT Q4H Lab 09/14/24 13:15 Ordered PTT Q4H Lab 09/14/24 17:15 Ordered PTT Q4H Lab 09/14/24 21:15 Ordered PTT Q4H Lab 09/15/24 01:15 Ordered PTT Q4H Lab 09/15/24 05:15 Ordered PTT Q4H Lab 09/15/24 09:15 Ordered PTT Q4H Lab 09/15/24 13:15 Ordered PTT Q4H Lab 09/15/24 17:15 Ordered PTT Stat Lab 09/13/24 20:07 Completed TROPONIN Q4H Lab 09/13/24 20:07 Completed TROPONIN Q4H Lab 09/14/24 03:45 Ordered Medication Summary Generic Name Dose Route Start Last Admin Trade Name Freq PRN Reason Stop Dose Admin Heparin Sodium/Dextrose 25,000 units in 250 mls @ 12.06 mls/hr 09/13/24 21:30 09/13/24 21:19 Heparin 25,000 Units/D5w: Use Order Set Wanda IV 10/13/24 21:29 12 units/kg/hr .[id number] STEFANIE 12.06 mls/hr Administration Protocol 12 UNITS/KG/HR Discontinued Medications Generic Name Dose Route Start Last Admin Trade Name Stacy PRN Reason Stop Dose Admin Heparin Sodium (Beef Lung) 5,000 unit 09/13/24 21:09 09/13/24 21:18 Heparin 5000 Units/0.5 Ml 5,000 Unit/0.5 Ml Syr IV 09/13/24 21:10 5,000 unit STAT STA Administration Heparin Sodium (Beef Lung) Confirm 09/13/24 21:16 Heparin 5000 Units/0.5 Ml 5,000 Unit/0.5 Ml Syr Administered 09/13/24 21:17 Dose 5,000 unit .ROUTE .STK-MED ONE Sodium Chloride 1,000 mls @ 999 mls/hr 09/13/24 22:45 09/13/24 23:48 Sodium Chloride 0.9% 1000 Ml IV 09/13/24 23:45 Infused .Q1H1M STA Infusion Sodium Chloride Confirm 09/13/24 22:47 Sodium Chloride 0.9% 1000 Ml Administered 09/13/24 22:48 Dose 1,000 mls @ ud .ROUTE .STK-MED ONE Sodium Chloride Confirm 09/14/24 02:39 Sodium Chloride 0.9% 1000 Ml Administered 09/14/24 02:40 Dose 1,000 mls @ ud .ROUTE .STK-MED ONE Lab/Rad Data: Laboratory Result Diagrams 09/13/24 20:07 09/13/24 20:07 Laboratory Results 09/14/24 09/13/24 09/13/24 Range/Units 01:27 20:07 20:07 WBC (4.23-9.07) x10^3/uL RBC (4.63-6.08) x10^6/uL Hgb (13.7-17.5) g/dL Hct (40.1-51.0) % MCV (79.0-92.2) fL MCH (25.7-32.2) pg MCHC (32.3-36.5) g/dL RDW (11.6-14.4) % Plt Count (163-337) x10^3/uL MPV (9.4-12.4) fL Gran % (34.0-67.9) % Immature Gran % (Auto) (0.001-0.429) % Nucleat RBC Rel Count (0.00-0.2) % Eos # (Auto) (0.04-0.54) x10^3/uL Immature Gran # (Auto) (0.001-0.031) x10^3u/L Absolute Lymphs (auto) (1.32-3.57) x10^3/uL Absolute Monos (auto) (0.30-0.82) x10^3/uL Absolute Nucleated RBC (0.00-0.012) x10^3u/L Lymphocytes % (21.8-53.1) % Monocytes % (5.3-12.2) % Eosinophils % (0.8-7.0) % Basophils % (0.2-1.2) % Absolute Granulocytes (1.78-5.38) x10^3/uL Basophils # (0.01-0.08) x10^3/uL PT 10.7 (9.4-12.5) SECONDS INR 0.98 (0.8-3.0) APTT > 139.0 H* 30.0 (25.1-36.5) SECONDS D-Dimer (0.0-0.50) mg/L Sodium (135-145) mmol/L Potassium (3.5-5.1) mmol/L Chloride (98-107) mmol/L Carbon Dioxide (22-30) mmol/L Anion Gap (5-15) MEQ/L BUN (9-20) mg/dL Creatinine (0.66-1.25) mg/dL Estimated GFR ML/MIN Glucose (74-106) mg/dL Lactic Acid (0.4-2.0) Calcium (8.4-10.2) mg/dL Total Bilirubin (0.2-1.3) mg/dL AST (17-59) U/L ALT (0-50) U/L Alkaline Phosphatase (38-126) U/L Troponin I 0.035 H* (0.000-0.033) ng/mL Serum Total Protein (6.3-8.2) g/dL Albumin (3.5-5.0) g/dL Influenza Type A Ag (NEGATIVE) Influenza Type B Ag (NEGATIVE) RSV (PCR) (NEGATIVE) SARS-CoV-2 (PCR) (NEGATIVE) 09/13/24 09/13/2425 Range/Units 20:07 20:07 20:07 WBC (4.23-9.07) x10^3/uL RBC (4.63-6.08) x10^6/uL Hgb (13.7-17.5) g/dL Hct (40.1-51.0) % MCV (79.0-92.2) fL MCH (25.7-32.2) pg MCHC (32.3-36.5) g/dL RDW (11.6-14.4) % Plt Count (163-337) x10^3/uL MPV (9.4-12.4) fL Gran % (34.0-67.9) % Immature Gran % (Auto) (0.001-0.429) % Nucleat RBC Rel Count (0.00-0.2) % Eos # (Auto) (0.04-0.54) x10^3/uL Immature Gran # (Auto) (0.001-0.031) x10^3u/L Absolute Lymphs (auto) (1.32-3.57) x10^3/uL Absolute Monos (auto) (0.30-0.82) x10^3/uL Absolute Nucleated RBC (0.00-0.012) x10^3u/L Lymphocytes % (21.8-53.1) % Monocytes % (5.3-12.2) % Eosinophils % (0.8-7.0) % Basophils % (0.2-1.2) % Absolute Granulocytes (1.78-5.38) x10^3/uL Basophils # (0.01-0.08) x10^3/uL PT (9.4-12.5) SECONDS INR (0.8-3.0) APTT (25.1-36.5) SECONDS D-Dimer 0.86 H* (0.0-0.50) mg/L Sodium 138 (135-145) mmol/L Potassium 4.4 (3.5-5.1) mmol/L Chloride 107 (98-107) mmol/L Carbon Dioxide 16 L* (22-30) mmol/L Anion Gap 18.8 H (5-15) MEQ/L BUN 21 H (9-20) mg/dL Creatinine 1.25 (0.66-1.25) mg/dL Estimated GFR 59.7 ML/MIN Glucose 116 H (74-106) mg/dL Lactic Acid (0.4-2.0) Calcium 9.4 (8.4-10.2) mg/dL Total Bilirubin 0.60 (0.2-1.3) mg/dL AST 57 (17-59) U/L ALT 36 (0-50) U/L Alkaline Phosphatase 52 (38-126) U/L Troponin I (0.000-0.033) ng/mL Serum Total Protein 6.9 (6.3-8.2) g/dL Albumin 4.1 (3.5-5.0) g/dL Influenza Type A Ag POSITIVE A (NEGATIVE) Influenza Type B Ag NEGATIVE (NEGATIVE) RSV (PCR) NEGATIVE (NEGATIVE) SARS-CoV-2 (PCR) NEGATIVE (NEGATIVE) 09/13/24 09/13/24 09/13/24 Range/Units 20:07 19:56 01:27 WBC 5.2 (4.23-9.07) x10^3/uL RBC 3.85 L (4.63-6.08) x10^6/uL Hgb 12.0 L (13.7-17.5) g/dL Hct 35.5 L (40.1-51.0) % MCV 92.2 (79.0-92.2) fL MCH 31.2 (25.7-32.2) pg MCHC 33.8 (32.3-36.5) g/dL RDW 14.1 (11.6-14.4) % Plt Count 138 L (163-337) x10^3/uL MPV 10.6 (9.4-12.4) fL Gran % 61.0 (34.0-67.9) % Immature Gran % (Auto) 0.4 (0.001-0.429) % Nucleat RBC Rel Count 0.0 (0.00-0.2) % Eos # (Auto) 0.01 L (0.04-0.54) x10^3/uL Immature Gran # (Auto) 0.02 (0.001-0.031) x10^3u/L Absolute Lymphs (auto) 0.73 L (1.32-3.57) x10^3/uL Absolute Monos (auto) 1.24 H (0.30-0.82) x10^3/uL Absolute Nucleated RBC 0.00 (0.00-0.012) x10^3u/L Lymphocytes % 14.0 L (21.8-53.1) % Monocytes % 23.8 H (5.3-12.2) % Eosinophils % 0.2 L (0.8-7.0) % Basophils % 0.6 (0.2-1.2) % Absolute Granulocytes 3.19 (1.78-5.38) x10^3/uL Basophils # 0.03 (0.01-0.08) x10^3/uL PT (9.4-12.5) SECONDS INR (0.8-3.0) APTT (25.1-36.5) SECONDS D-Dimer (0.0-0.50) mg/L Sodium (135-145) mmol/L Potassium (3.5-5.1) mmol/L Chloride (98-107) mmol/L Carbon Dioxide (22-30) mmol/L Anion Gap (5-15) MEQ/L BUN (9-20) mg/dL Creatinine (0.66-1.25) mg/dL Estimated GFR ML/MIN Glucose (74-106) mg/dL Lactic Acid 1.6 (0.4-2.0) Calcium (8.4-10.2) mg/dL Total Bilirubin (0.2-1.3) mg/dL AST (17-59) U/L ALT (0-50) U/L Alkaline Phosphatase (38-126) U/L Troponin I 0.041 H* (0.000-0.033) ng/mL Serum Total Protein (6.3-8.2) g/dL Albumin (3.5-5.0) g/dL Influenza Type A Ag (NEGATIVE) Influenza Type B Ag (NEGATIVE) RSV (PCR) (NEGATIVE) SARS-CoV-2 (PCR) (NEGATIVE) - Progress Progress: re-examined Air Movement: good Progress Note: On the differential was COVID flu RSV pneumonia sepsis as well as pulmonary embolism and coronary vascular event. The patient's troponin was elevated. His EKG did not show any other abnormalities. I went ahead and got a CTA of the chest because he had an D-dimer.There is no PE on the study. Just chronic changes.Of note he did have a low bicarb it was 16. I do not understand why at this point.He was positive forInfluenza. The patient also has A-fib which is newly diagnosed. I do not know when the symptoms started neither does the patient. I am going to go ahead and start the patient on a heparin drip because he is A-fib as well as possible NSTEMI. His troponins are pretty stable I do not think is an NSTEMI. We are going to admit him for new onset A-fib though.I spoke with Dr. Rosas the hospitalist. 09/13/24 22:57 09/13/24 22:59 09/14/24 00:45 09/14/24 02:46 Medical Desision Making - Discussion of managment Care discussed with:: hospitalist Reviewed:: Test results Agreed on:: Treatment plan, place in obs - Social Determinants of Health Limited access to: transportation - Diagnostic Testing Diagnostic test were ordered, analyzed, and reviewed by me: Yes Radiological Interpretation: Interpreted by me - Risk of complications Low Risk: Low risk of morbidity from additional dx testing or treatment - Departure Departure Disposition: Observation Clinical Impression: New onset a-fib Condition: Stable Critical Care Time: No Referrals: SAMRA ANTONY MD [Primary Care Provider] - Follow up/PCP as directed
[2024-09-13 20:13] LABS: Absolute Neutrophil Ct (ANC) 3.19 x10^3/uL (1.78-5.38); BASOPHIL % 0.6 % (0.2-1.2); Basophil (Absolute #) 0.03 x10^3/uL (0.01-0.08); Eosinophil % 0.2 % (0.8-7.0); Eosinophil (Absolute #) 0.01 x10^3/uL (0.04-0.54); Hematocrit 35.5 % (40.1-51.0); IMMATURE GRAN # 0.02 x10^3u/L (0.001-0.031); IMMATURE GRAN % 0.4 % (0.001-0.429); Lymphocyte (Absolute #) 0.73 x10^3/uL (1.32-3.57); Mean Cell Volume 92.2 fL (79.0-92.2); Mean Corpuscular Hemoglobin 31.2 pg (25.7-32.2); Mean Corpuscular Hgb Concent. 33.8 g/dL (32.3-36.5); Mean Platelet Volume 10.6 fL (9.4-12.4); Monocyte (Absolute #) 1.24 x10^3/uL (0.30-0.82); Monocytes % 23.8 % (5.3-12.2); Platelet Count 138 x10^3/uL (163-337); Red Blood Count 3.85 x10^6/uL (4.63-6.08); Red Cell Distribution Width 14.1 % (11.6-14.4); White Blood Count 5.2 x10^3/uL (4.23-9.07)
[2024-09-13 20:27] LABS: ALBUMIN 4.1 g/dL (3.5-5.0); ANION GAP 18.8 MEQ/L (5-15); BILIRUBIN,TOTAL 0.6 mg/dL (0.2-1.3); Calcium 9.4 mg/dL (8.4-10.2); Creatinine 1 1.25 mg/dL (0.66-1.25); EST GLOMERULAR FILTRATION RATE 59.7 ML/MIN; Potassium 4.4 mmol/L (3.5-5.1); Total Protein 6.9 g/dL (6.3-8.2)
[2024-09-13 20:55] LABS: INFLUENZA B NEGATIVE (NEGATIVE); RESPIRATORY SYNCTIAL VIRUS NEGATIVE (NEGATIVE); SARS-CoV-2 Xpert Express NEGATIVE (NEGATIVE)
[2024-09-13 21:07] LABS: INFLUENZA A POSITIVE (NEGATIVE)
[2024-09-13] MEDS ORDERED: HEPARIN 5000 UNITS/0.5 ML (HIGH RISK MED) ONE (21:16)
[2024-09-13] MEDS ORDERED: Heparin 25,000 units/D5W: USE ORDER SET PROTO 25,000 UNITS/250 ML BAG IV ONE (21:17)
[2024-09-13] MEDS: HEPARIN 5000 UNITS/0.5 ML (HIGH RISK MED) IV STA (21:18)
[2024-09-13] MEDS: Heparin 25,000 units/D5W: USE ORDER SET PROTO 25,000 UNITS/250 ML BAG IV SCH (21:19)
[2024-09-13 21:34] LABS: INR 0.98 (0.8-3.0); PROTIME 10.7 SECONDS (9.4-12.5)
--- NOTE | 2024-09-13 22:43 | XRAY ---
CLINICAL HISTORY: dyspnea COMPARISON: None. TECHNIQUE: Contiguous 3.[address] images of the chest were acquired with 80ml ISOVUE 370 intravenous contrast administration. Coronal and sagittal reconstructions were also obtained.One of the following dose reduction techniques was utilized for this exam.Automated exposure control, adjustment of the mA and/or kV according to patient size, and use of iterative reconstruction. FINDINGS: The main pulmonary artery trunk, its main and segmental branches show normal opacification. No thrombosis or area of stenosis was identified. The aorta and its main branches also show moderate atherosclerotic changes with normal opacification. No aneurysmal dilatation, thrombosis, dissection, or area of stenosis was seen. Atelectatic changes are seen in the left basal lung. Subpleural Interlobular septal thickening is noted in both lungs. A few patchy areas of ground glass haze are seen in both upper lobes. No area of consolidation or soft tissue nodular infiltration was seen in both lungs. A few perifissural indeterminate nodules are seen bilaterally, 3 mm on the right and 5 mm on the left. No follow-up is recommended according to Fleischner guidelines. Heart size appears normal. No pleural or pericardial effusion is noted. No evidence of pathologically enlarged mediastinal, axillary, and supraclavicular lymphadenopathy. A few small hypodense focal lesions are seen in the liver concerning simple cysts. The largest in segment 2 measures 32 mm. Bilateral perinephric fat stranding is noted in the acquired slices with simple unilocular cysts seen bilaterally, the largest on the right measuring 26 mm. The visualized skeleton shows moderate degenerative changes. IMPRESSION: 1. Normally opacified pulmonary artery and aorta without any significant luminal narrowing. 2. Subpleural interlobular septal thickening might represent with minima; patchy areas of ground glass haze seen in both upper lobes likely represent superadded infection. Please evaluate clinically. 3. Bibasilar subsegmental atelectatic changes in the left lower lung base. 4. Bilateral perinephric fat stranding with a simple unilocular cyst seen bilaterally might represent acute infectious changes in the acquired slices. Please evaluate clinically. 5. Simple hepatic cysts. Electronically Signed by: Gurinder Suresh MD. (09/13/2024 22:38:40 EST)
[2024-09-13] MEDS ORDERED: Sodium Chloride 0.9% 1000 ML 1,000 ML ONE (22:47)
[2024-09-13] MEDS: Sodium Chloride 0.9% 1000 ML 1,000 ML IV STA (22:48)
[2024-09-14] MEDS ORDERED: Sodium Chloride 0.9% 1000 ML 0 ML ONE (02:39)
[2024-09-14] MEDS ORDERED: TYLENOL 325 MG ONE (04:35)
[2024-09-14] MEDS: TYLENOL 325 MG PO PRN (04:36)
[2024-09-14 04:41] LABS: Hemoglobin 11.2 g/dL (13.7-17.5); Mean Cell Volume 94.7 fL (79.0-92.2); Mean Corpuscular Hemoglobin 31.2 pg (25.7-32.2); Mean Corpuscular Hgb Concent. 32.9 g/dL (32.3-36.5); Mean Platelet Volume 10.3 fL (9.4-12.4); Platelet Count 119 x10^3/uL (163-337); Red Blood Count 3.59 x10^6/uL (4.63-6.08); Red Cell Distribution Width 14.3 % (11.6-14.4); White Blood Count 6.6 x10^3/uL (4.23-9.07)
[2024-09-14] MEDS: Sodium Chloride 0.9% 1000 ML 1,000 ML IV SCH (05:09)
[2024-09-14] MEDS: ELIQUIS 2.5 MG TABLET PO SCH ×2 (05:11→21:47)
[2024-09-14] MEDS ORDERED: MORPHINE SULFATE 4 MG INJ IV PRN (06:24)
--- NOTE | 2024-09-14 06:35 | PCM.HP ---
History of Present Illness - Chief Complaint Chief Complaint: cough Date: 09/14/24 History of Present Illness: 74-year-old man with history of CAD, hypertension, and depression, who presents with 1 day of severe cough. He noted onset earlier today of fever, dyspnea, and cough, causing abdominal pain whenever he coughs. Denies any chest pain, nausea, or diarrhea. He noticed an episode of palpitations earlier, although feels legs are better. Denies any history of cardiac arrhythmias. He has a history of MS 20 years ago, but no issues since then. He is a former smoker who quit 6 months ago, previously smoked 1-1/2 packs/day for 40 years. No history of thyroid disea se. - Review of Systems All Other Systems: Reviewed and Negative Medications & Allergies Home Medications: Home Medication List Clopidogrel Bisulfate [PLAVIX Tablet] 1 tab PO HS 03/05/23 [History Confirmed 09/13/24] Ezetimibe 10 mg [Zetia 10 MG] 1 tab PO HS 03/05/23 [History Confirmed 09/13/24] Lisinopril/Hydrochlorothiazide [Lisinopril-Hctz 20-12.5 mg Tab] 1 tab PO BID 03/05/23 [History Confirmed 09/13/24] Metoprolol Tartrate 50 mg [Lopressor 50 MG] 1 tab PO BID 03/05/23 [History Confirmed 09/13/24] PARoxetine HCL [Paroxetine HCl] 1 tab PO HS 03/05/23 [History Confirmed 09/13/24] Rosuvastatin Calcium 1 tab PO HS 03/05/23 [History Confirmed 09/13/24] Hydroxyzine HCl 25 mg [Atarax 25 mg] 25 mg PO QID 09/13/24 [History Confirmed 09/13/24] Allergies/Adverse Reactions: Allergies Allergy/AdvReac Type Severity Reaction Status Date / Time Penicillins Allergy Verified 09/14/24 04:29 - Past Medical History Past Medical History: Yes Neurological History: No Pertinent History ENT History: No Pertinent History Cardiac History: High Cholesterol, Hypertension, Myocardial Infarction (MS) Respiratory History: No Pertinent History Endocrine Medical History: No Pertinent History Musculoskelatal History: Arthritis GI Medical History: No Pertinent History History: No Pertinent History Pyscho-Social History: Anxiety, Depression Male Reproductive Disorders: No Pertinent History Comment: SHIKHA, DVT right leg - Past Surgical History Past Surgical History: Yes (knee, shoulder, cardiac stenting) Neuro Surgical History: No Pertinent History Cardiac History: Cardiac Catheterization, Cardiac Stent Respiratory Surgery: No Pertinent History GI Surgical History: No Pertinent History Genitourinary Surgical Hx: No Pertinent History Musculskeletal Surgical Hx: Orthopedic Surgery Male Surgical History: No Pertinent History Other Surgical History: knee replacement Significant Family History: heart disease (father at advanced age) - Social History Smoking Status: Former smoker (quit 2023; previous 1.5 ppd x40 years) How long have you smoked: Years Exposure to second hand smoke: No Alcohol: Rarely Drug Use: none - Social Determinants of Health Will the patient participate in the screening: Declined to provide Do you worry about a steady place to live?: No Do you have any problems with any of the following?: No known problems In the past 12 months,have you had to go without utilities?: No Have you or anyone in your house had to go without enough: No Transportation Issues: No Has anyone in your support network made you feel unsafe?: No - Physical Exam Vital Signs: Vital Signs - 24 hr Temp Pulse Pulse Resp BP BP Pulse Ox 09/14/24 06:01 74 19 115/60 93 L 09/14/24 05:21 83 20 106/44 94 L 09/14/24 04:06 102.2 F 75 18 133/58 97 09/14/24 04:04 74 24 133/58 98 09/14/24 04:01 98 09/14/24 03:30 102.2 F 112/54 09/14/24 03:01 70 27 H 128/58 96 09/14/24 02:47 98 09/14/24 02:31 68 20 115/61 95 09/14/24 02:01 66 21 130/60 96 09/14/24 01:31 63 18 124/60 97 09/14/24 01:00 66 20 96/56 98 09/14/24 00:31 62 21 107/58 09/14/24 00:01 63 16 110/58 09/13/24 23:30 59 L 18 118/62 88 L 09/13/24 23:07 60 17 109/93 94 L 09/13/24 22:30 66 21 128/57 97 09/13/24 22:02 63 20 123/57 99 09/13/24 21:40 155/76 99 09/13/24 21:38 98 09/13/24 21:01 136/57 09/13/24 20:31 60 17 135/87 98 09/13/24 20:00 78 28 H 120/85 96 09/13/24 19:30 78 24 120/69 95 09/13/24 19:29 100.1 F 120 H 110 H 30 H 157/101 98 09/13/24 19:16 85 22 157/107 Physical Exam GEN: Sitting up in bed in no acute distress. HENT: Normocephalic, atraumatic. Moist mucous membranes. EYES: Normal inspection, anicteric sclera, extraocular movements intact. NECK: Supple, full range of motion CV: Somewhat irregular rhythm. Telemetry reviewed, shows sinus rhythm with frequent PACs. No murmurs. No edema. PULM: Clear to auscultation bilaterally, no work of breathing. On room air. ABD: Nondistended, nontender. MSK: No joint effusions, full range of motion SKIN: No rashes, normal color. NEURO: Face symmetric, no focal motor or sensory deficits. PSYCH: Alert, oriented x 3 Results - Labs Lab/Micro Results: Lab Results-Last 24 Hours 09/13/24 09/13/24 09/13/24 Range/Units 01:27 19:56 20:07 WBC 5.2 (4.23-9.07) x10^3/uL RBC 3.85 L (4.63-6.08) x10^6/uL Hgb 12.0 L (13.7-17.5) g/dL Hct 35.5 L (40.1-51.0) % MCV 92.2 (79.0-92.2) fL MCH 31.2 (25.7-32.2) pg MCHC 33.8 (32.3-36.5) g/dL RDW 14.1 (11.6-14.4) % Plt Count 138 L (163-337) x10^3/uL MPV 10.6 (9.4-12.4) fL Gran % 61.0 (34.0-67.9) % Immature Gran % (Auto) 0.4 (0.001-0.429) % Nucleat RBC Rel Count 0.0 (0.00-0.2) % Eos # (Auto) 0.01 L (0.04-0.54) x10^3/uL Immature Gran # (Auto) 0.02 (0.001-0.031) x10^3u/L Absolute Lymphs (auto) 0.73 L (1.32-3.57) x10^3/uL Absolute Monos (auto) 1.24 H (0.30-0.82) x10^3/uL Absolute Nucleated RBC 0.00 (0.00-0.012) x10^3u/L Lymphocytes % 14.0 L (21.8-53.1) % Monocytes % 23.8 H (5.3-12.2) % Eosinophils % 0.2 L (0.8-7.0) % Basophils % 0.6 (0.2-1.2) % Absolute Granulocytes 3.19 (1.78-5.38) x10^3/uL Basophils # 0.03 (0.01-0.08) x10^3/uL PT (9.4-12.5) SECONDS INR (0.8-3.0) APTT (25.1-36.5) SECONDS D-Dimer (0.0-0.50) mg/L Sodium (135-145) mmol/L Potassium (3.5-5.1) mmol/L Chloride (98-107) mmol/L Carbon Dioxide (22-30) mmol/L Anion Gap (5-15) MEQ/L BUN (9-20) mg/dL Creatinine (0.66-1.25) mg/dL Estimated GFR ML/MIN Glucose (74-106) mg/dL Lactic Acid 1.6 (0.4-2.0) Calcium (8.4-10.2) mg/dL Total Bilirubin (0.2-1.3) mg/dL AST (17-59) U/L ALT (0-50) U/L Alkaline Phosphatase (38-126) U/L Troponin I 0.041 H* (0.000-0.033) ng/mL Serum Total Protein (6.3-8.2) g/dL Albumin (3.5-5.0) g/dL Influenza Type A Ag (NEGATIVE) Influenza Type B Ag (NEGATIVE) RSV (PCR) (NEGATIVE) SARS-CoV-2 (PCR) (NEGATIVE) 09/13/24 09/13/24 09/13/24 Range/Units 20:07 20:07 20:07 WBC (4.23-9.07) x10^3/uL RBC (4.63-6.08) x10^6/uL Hgb (13.7-17.5) g/dL Hct (40.1-51.0) % MCV (79.0-92.2) fL MCH (25.7-32.2) pg MCHC (32.3-36.5) g/dL RDW (11.6-14.4) % Plt Count (163-337) x10^3/uL MPV (9.4-12.4) fL Gran % (34.0-67.9) % Immature Gran % (Auto) (0.001-0.429) % Nucleat RBC Rel Count (0.00-0.2) % Eos # (Auto) (0.04-0.54) x10^3/uL Immature Gran # (Auto) (0.001-0.031) x10^3u/L Absolute Lymphs (auto) (1.32-3.57) x10^3/uL Absolute Monos (auto) (0.30-0.82) x10^3/uL Absolute Nucleated RBC (0.00-0.012) x10^3u/L Lymphocytes % (21.8-53.1) % Monocytes % (5.3-12.2) % Eosinophils % (0.8-7.0) % Basophils % (0.2-1.2) % Absolute Granulocytes (1.78-5.38) x10^3/uL Basophils # (0.01-0.08) x10^3/uL PT (9.4-12.5) SECONDS INR (0.8-3.0) APTT (25.1-36.5) SECONDS D-Dimer 0.86 H* (0.0-0.50) mg/L Sodium 138 (135-145) mmol/L Potassium 4.4 (3.5-5.1) mmol/L Chloride 107 (98-107) mmol/L Carbon Dioxide 16 L* (22-30) mmol/L Anion Gap 18.8 H (5-15) MEQ/L BUN 21 H (9-20) mg/dL Creatinine 1.25 (0.66-1.25) mg/dL Estimated GFR 59.7 ML/MIN Glucose 116 H (74-106) mg/dL Lactic Acid (0.4-2.0) Calcium 9.4 (8.4-10.2) mg/dL Total Bilirubin 0.60 (0.2-1.3) mg/dL AST 57 (17-59) U/L ALT 36 (0-50) U/L Alkaline Phosphatase 52 (38-126) U/L Troponin I (0.000-0.033) ng/mL Serum Total Protein 6.9 (6.3-8.2) g/dL Albumin 4.1 (3.5-5.0) g/dL Influenza Type A Ag POSITIVE A (NEGATIVE) Influenza Type B Ag NEGATIVE (NEGATIVE) RSV (PCR) NEGATIVE (NEGATIVE) SARS-CoV-2 (PCR) NEGATIVE (NEGATIVE) 09/13/24 09/13/24 09/14/24 Range/Units 20:07 20:07 01:27 WBC (4.23-9.07) x10^3/uL RBC (4.63-6.08) x10^6/uL Hgb (13.7-17.5) g/dL Hct (40.1-51.0) % MCV (79.0-92.2) fL MCH (25.7-32.2) pg MCHC (32.3-36.5) g/dL RDW (11.6-14.4) % Plt Count (163-337) x10^3/uL MPV (9.4-12.4) fL Gran % (34.0-67.9) % Immature Gran % (Auto) (0.001-0.429) % Nucleat RBC Rel Count (0.00-0.2) % Eos # (Auto) (0.04-0.54) x10^3/uL Immature Gran # (Auto) (0.001-0.031) x10^3u/L Absolute Lymphs (auto) (1.32-3.57) x10^3/uL Absolute Monos (auto) (0.30-0.82) x10^3/uL Absolute Nucleated RBC (0.00-0.012) x10^3u/L Lymphocytes % (21.8-53.1) % Monocytes % (5.3-12.2) % Eosinophils % (0.8-7.0) % Basophils % (0.2-1.2) % Absolute Granulocytes (1.78-5.38) x10^3/uL Basophils # (0.01-0.08) x10^3/uL PT 10.7 (9.4-12.5) SECONDS INR 0.98 (0.8-3.0) APTT 30.0 > 139.0 H* (25.1-36.5) SECONDS D-Dimer (0.0-0.50) mg/L Sodium (135-145) mmol/L Potassium (3.5-5.1) mmol/L Chloride (98-107) mmol/L Carbon Dioxide (22-30) mmol/L Anion Gap (5-15) MEQ/L BUN (9-20) mg/dL Creatinine (0.66-1.25) mg/dL Estimated GFR ML/MIN Glucose (74-106) mg/dL Lactic Acid (0.4-2.0) Calcium (8.4-10.2) mg/dL Total Bilirubin (0.2-1.3) mg/dL AST (17-59) U/L ALT (0-50) U/L Alkaline Phosphatase (38-126) U/L Troponin I 0.035 H* (0.000-0.033) ng/mL Serum Total Protein (6.3-8.2) g/dL Albumin (3.5-5.0) g/dL Influenza Type A Ag (NEGATIVE) Influenza Type B Ag (NEGATIVE) RSV (PCR) (NEGATIVE) SARS-CoV-2 (PCR) (NEGATIVE) 09/14/24 09/14/24 09/14/24 Range/Units 04:34 04:34 04:34 WBC 6.6 (4.23-9.07) x10^3/uL RBC 3.59 L (4.63-6.08) x10^6/uL Hgb 11.2 L (13.7-17.5) g/dL Hct 34.0 L (40.1-51.0) % MCV 94.7 H (79.0-92.2) fL MCH 31.2 (25.7-32.2) pg MCHC 32.9 (32.3-36.5) g/dL RDW 14.3 (11.6-14.4) % Plt Count 119 L (163-337) x10^3/uL MPV 10.3 (9.4-12.4) fL Gran % (34.0-67.9) % Immature Gran % (Auto) (0.001-0.429) % Nucleat RBC Rel Count (0.00-0.2) % Eos # (Auto) (0.04-0.54) x10^3/uL Immature Gran # (Auto) (0.001-0.031) x10^3u/L Absolute Lymphs (auto) (1.32-3.57) x10^3/uL Absolute Monos (auto) (0.30-0.82) x10^3/uL Absolute Nucleated RBC (0.00-0.012) x10^3u/L Lymphocytes % (21.8-53.1) % Monocytes % (5.3-12.2) % Eosinophils % (0.8-7.0) % Basophils % (0.2-1.2) % Absolute Granulocytes (1.78-5.38) x10^3/uL Basophils # (0.01-0.08) x10^3/uL PT (9.4-12.5) SECONDS INR (0.8-3.0) APTT > 139.0 H* (25.1-36.5) SECONDS D-Dimer (0.0-0.50) mg/L Sodium (135-145) mmol/L Potassium (3.5-5.1) mmol/L Chloride (98-107) mmol/L Carbon Dioxide (22-30) mmol/L Anion Gap (5-15) MEQ/L BUN (9-20) mg/dL Creatinine (0.66-1.25) mg/dL Estimated GFR ML/MIN Glucose (74-106) mg/dL Lactic Acid (0.4-2.0) Calcium (8.4-10.2) mg/dL Total Bilirubin (0.2-1.3) mg/dL AST (17-59) U/L ALT (0-50) U/L Alkaline Phosphatase (38-126) U/L Troponin I 0.031 (0.000-0.033) ng/mL Serum Total Protein (6.3-8.2) g/dL Albumin (3.5-5.0) g/dL Influenza Type A Ag (NEGATIVE) Influenza Type B Ag (NEGATIVE) RSV (PCR) (NEGATIVE) SARS-CoV-2 (PCR) (NEGATIVE) - Radiology Impressions Radiology Exams & Impressions: Radiology Procedures Category Date Time Status CHEST 1 VIEW (PORTABLE) Stat Exams 09/13/24 19:41 Taken CHEST WITH CONTRAST [CT] Stat Exams 09/13/24 21:13 Completed ECHO W/2D AND DOPPLER [US] Routine Exams 09/14/24 06:[address] chest no PE. Subpleural interlobular septal thickening with minimal patchy areas of groundglass haziness in both upper lobes, but no consolidation. Assessment/Plan (1) New onset a-fib Current Visit: Yes Status: Acute Assessment & Plan: 74-year-old man with history of CAD, hypertension, depression, presents with influenza A and was found to have new onset atrial fibrillation. ## Atrial fibrillation, new onset for patient. No known prior history. Appears to have presented in the setting of acute illness, but patient presumably is still predisposed to developing A-fib. Started on heparin drip in the ED, but patient is supratherapeutic. There is no particular need to use an unstable medication with heparin drip and this current time. Patient is currently in sinus rhythm, although he has significant atrial ectopy. DC heparin drip Start Eliquis 5 mg p.o. BID ([id number] score is 3) Check echocardiogram Check TSH Continue home Lopressor 50 mg BID ## Influenza A causing pain with coughing, but no hypoxia. Might have some early influenza pneumonia given bilateral patchy groundglass opacities noted on CT chest. Start Tamiflu 75 mg p.o. BID for 5 days PRN codeine with guaifenesin for cough suppression ## Hypertension blood pressure controlled. Continue lisinopril 20, hydrochlorothiazide 12.5, Lopressor 50 BID ## Coronary artery disease Continue Plavix 75, Lopressor 50 BID, and Crestor 20 Given that patient's stents were placed 20 years ago, if patient is to remain on Eliquis long-term, current guidelines state that patient can be maintained on Eliquis without any need for specific antiplatelet therapy (i.e., can discontinue Plavix at discharge if sending patient home on Eliquis) CODE STATUS: Full code Diet: Regular Prophylaxis: Eliquis Dispo: Place in observation, expect eventual discharge to home in the next 24 to 48 hours Entirety of encounter took place via live audio/video telemedicine device, with remote physician and patient in hospital, with the assistance of bedside nurse. Code(s): I48.91 - UNSPECIFIED ATRIAL FIBRILLATION Telemedicine Encounter - Telemedicine Encounter Telemedicine Encounter: "The entirety of this encounter was performed via Telemedicine" This visit was performed using real-time audio and video connection between my location and thepatients locationwith the assistance of a surrogateat the patients location. Written or verbal consent was obtained from the patient/guardian to perform this visit using[facility] cliniclemedicine technology. Any patient questions regarding the telemedicine interaction were answered.
[2024-09-14] MEDS: Tamiflu 75MG Capsule PO SCH (06:41)
[2024-09-14 08:03] LABS: ANION GAP 17.1 MEQ/L (5-15); Calcium 8.6 mg/dL (8.4-10.2); Creatinine 1 1.29 mg/dL (0.66-1.25); EST GLOMERULAR FILTRATION RATE 57.5 ML/MIN; Potassium 4.8 mmol/L (3.5-5.1); TSH, 3RD Generation 0.469 mIU/L (0.470-4.680)
--- NOTE | 2024-09-14 08:51 | XRAY ---
Indication: Cough. Comparison: September 19, 2007 Portable apical lordotic chest less inflated accentuating cardiopulmonary structures with new minimal bibasilar infiltrates/atelectasis. Remaining heart and upper lungs unremarkable. Bony thorax intact again with osteopenia and degenerative changes.
[2024-09-14] MEDS ORDERED: NON-FORMULARY ITEM (Lisinopril/Hydrochlorothiazide [Lisinopril-Hctz 20-12.5 Mg Tab] 1 EACH PO SCH (10:00)
[2024-09-14] MEDS: hydroDIURIL 25 MG PO SCH (11:06)
[2024-09-14] MEDS: ATARAX 25 MG PO SCH (11:08)
[2024-09-14] MEDS: Lopressor 50 MG PO SCH (11:08)
[2024-09-14] MEDS: Zestril 20 MG PO SCH (11:08)
[2024-09-14] MEDS: Robitussin AC Syrup Unit Dose Cup PO PRN (14:52)
[2024-09-14] MEDS: PLAVIX Tablet PO SCH (21:47)
[2024-09-14] MEDS: OSELTAMIVIR PHOSPHATE 30 MG CAP PO SCH (21:47)
[2024-09-14] MEDS: ZOCOR 20MG PO SCH (21:47)
[2024-09-14] MEDS: Paxil 20 MG PO SCH (21:47)
[2024-09-14] MEDS: Zetia 10 MG PO SCH (21:47)
[2024-09-14] MEDS ORDERED: NON-FORMULARY ITEM (Rosuvastatin Calcium [Rosuvastatin Calcium] 20 MG Tablet) PO SCH (22:00)
[2024-09-14] MEDS ORDERED: NON-FORMULARY ITEM (Paroxetine Hcl [Paroxetine Hcl] 10 MG Tablet) PO SCH (22:00)
[2024-09-15] MEDS: PERCOCET TABLET 5/325MG PO PRN (00:51)
[2024-09-15 05:06] LABS: Hematocrit 33.3 % (40.1-51.0); Mean Cell Volume 95.4 fL (79.0-92.2); Mean Corpuscular Hemoglobin 31.5 pg (25.7-32.2); Mean Platelet Volume 10.6 fL (9.4-12.4); Platelet Count 117 x10^3/uL (163-337); Red Blood Count 3.49 x10^6/uL (4.63-6.08); Red Cell Distribution Width 14.2 % (11.6-14.4); White Blood Count 5.4 x10^3/uL (4.23-9.07)
[2024-09-15 05:42] LABS: ANION GAP 16.6 MEQ/L (5-15); Calcium 8.4 mg/dL (8.4-10.2); Creatinine 1 1.26 mg/dL (0.66-1.25); EST GLOMERULAR FILTRATION RATE 59.1 ML/MIN; Potassium 4.5 mmol/L (3.5-5.1)
--- NOTE | 2024-09-15 05:45 | PCM.NOTE ---
Date and Time: 09/15/24 0541 Subjective Assessment: HPI: Mr. Alcazar is a 74-year-old man with history of CAD, hypertension, and depression, who presents with 1 day of severe cough. He noted onset earlier today of fever, dyspnea, and cough, causing abdominal pain whenever he coughs. Denies any chest pain, nausea, or diarrhea. He noticed an episode of palpi tations earlier, although feels legs are better. Denies any history of cardiac arrhythmias. He has a history of MA 20 years ago, but no issues since then. He is a former smoker who quit 6 months ago, previously smoked 1-1/2 packs/day for 40 years. No history of thyroid disease. Upon arrival to ED EKG showing Afib which is new onset for the patient. Lab findings remarkable for FluA Objective Data Vital Signs: Vital Signs - 24 hr Temp Pulse Resp BP Pulse Ox 09/15/24 04:02 56 L 17 114/60 96 09/15/24 04:00 56 L 09/15/24 03:01 72 24 93/45 95 09/15/24 02:01 52 L 24 96/47 92 L 09/15/24 01:02 56 L 24 120/50 97 09/15/24 00:01 98.1 F 58 L 12 94/56 97 09/14/24 23:02 64 18 110/39 97 09/14/24 22:01 57 L 22 118/47 93 L 09/14/24 21:00 63 19 107/46 97 09/14/24 20:27 73 19 101/53 96 09/14/24 20:20 80 31 H 94 L 09/14/24 20:10 79 21 94 L 09/14/24 20:02 74 19 95 09/14/24 20:00 74 09/14/24 19:01 99.3 F 77 20 107/63 95 09/14/24 18:02 74 20 109/60 96 09/14/24 17:01 79 20 121/62 95 09/14/24 16:35 62 09/14/24 16:01 98.6 F 62 21 114/65 96 09/14/24 15:01 63 27 H 117/56 97 09/14/24 14:01 63 24 139/46 94 L 09/14/24 13:01 57 L 22 125/106 96 09/14/24 12:50 57 L 09/14/24 12:01 97.9 F 68 24 125/51 09/14/24 11:01 74 27 H 114/48 97 09/14/24 09:00 85 16 105/56 95 09/14/24 08:00 69 22 101/49 95 09/14/24 07:33 97.6 F 70 20 103/46 95 09/14/24 07:00 66 19 103/46 95 09/14/24 06:01 74 19 115/60 93 L Pain Assessment - Last Documented Pain Intensity 2 Pain Scale Used 0-10 Pain Scale Intake and Output: Intake & Output 09/12/24 09/13/24 09/14/24 09/15/24 11:59 11:59 11:59 11:59 Intake Total 480 480 Output Total 180 325 Balance 300 155 Weight 98.5 kg Lab Results: Lab Results-Last 24 Hours 09/14/24 Range/Units 04:34 Sodium 137 (135-145) mmol/L Potassium 4.8 (3.5-5.1) mmol/L Chloride 105 (98-107) mmol/L Carbon Dioxide 19 L (22-30) mmol/L Anion Gap 17.1 H (5-15) MEQ/L BUN 22 H (9-20) mg/dL Creatinine 1.29 H (0.66-1.25) mg/dL Estimated GFR 57.5 ML/MIN Glucose 111 H (74-106) mg/dL Calcium 8.6 (8.4-10.2) mg/dL TSH 3rd Generation 0.469 L (0.470-4.680) mIU/L Radiology Exams: Radiology Procedures Category Date Time Status CHEST 1 VIEW (PORTABLE) Stat Exams 09/13/24 19:41 Completed CHEST WITH CONTRAST [CT] Stat Exams 09/13/24 21:13 Completed ECHO W/2D AND DOPPLER [US] Routine Exams 09/14/24 06:22 Taken Multi-Disciplinary Progress Notes: Multi-Disciplinary Progress Notes 09/14/24 14:38 Case Management Note by Ansley Pearson S/W [facility]- ELIQUIS RX IS $15 Initialized on 09/14/24 14:38 - END OF NOTE 09/14/24 14:35 Case Management Note by Ansley Pearson REFERRAL FAXED TO [facility]. THEY WILL NEED NOTIFIED AT TIME OF DC AT [phone]. THEY WILL NEED FAXED THE DC INSTRUCTIONS, DC MED LIST AND DC SUMMARY TO [phone] Initialized on 09/14/24 14:35 - END OF NOTE Assessment/Plan (1) New onset a-fib Current Visit: Yes Status: Acute Assessment & Plan: -new onset for patient. No known prior history. Appears to have presented in the setting of acute illness, but patient presumably is still predisposed to developing A-fib. Started on heparin drip in the ED, but patient is supratherapeutic. There is no particular need to use an unstable medication with heparin drip and this current time. Patient is currently in sinus rhythm, although he has significant atrial ectopy. DC heparin drip Start Eliquis 5 mg p.o. BID ([id number] score is 3) Check echocardiogram Check TSH Continue home Lopressor 50 mg BID Code(s): I48.91 - UNSPECIFIED ATRIAL FIBRILLATION (2) Influenza A Current Visit: Yes Status: Acute Assessment & Plan: Start Tamiflu 75 mg p.o. BID for 5 days PRN codeine with guaifenesin for cough suppression Code(s): J10.1 - FLU DUE TO OTH IDENT INFLUENZA VIRUS W OTH RESP MANIFEST (3) HTN (hypertension) Current Visit: Yes Status: Acute Assessment & Plan: Continue lisinopril 20, hydrochlorothiazide 12.5, Lopressor 50 BID Code(s): I10 - ESSENTIAL (PRIMARY) HYPERTENSION (4) CAD (coronary artery disease) Current Visit: Yes Status: Acute Assessment & Plan: Continue Plavix 75, Lopressor 50 BID, and Crestor 20 Given that patient's stents were placed 20 years ago, if patient is to remain on Eliquis long-term, current guidelines state that patient can be maintained on Eliquis without any need for specific antiplatelet therapy (i.e., can discontinue Plavix at discharge if sending patient home on Eliquis) CODE STATUS: Full code Diet: Regular Prophylaxis: Eliquis Dispo: Place in observation, expect eventual discharge to home in the next 24 to 48 hours Code(s): I25.10 - ATHSCL HEART DISEASE OF [place] CORONARY ARTERY W/O ANG PCTRS
[2024-09-15 07:57] VITALS: TEMP 98
--- NOTE | 2024-09-15 09:19 | PCM.CONS ---
History of Present Illness - Date of Consult Date of Encounter: 09/15/24 Consulting Hydraulic Modeling Engineer: EVIE ALVAREZ MD Requesting Provider: Attending Provider: HIRAM RUBIO MD Primary Care Provider: PCP: SAMRA ANTONY - Consult Narrative Reason for Consult: afib HPI: 74-year-old man with history of CAD, hypertension, and depression, who presents with 1 day of severe cough and found to be positive for flu A. Coughing was associated with significant abdominal pain an thus he presented for further evaluation. He was initially in rate controlled afib upon presentation. To me he denied any symptoms of palpitations, SOB, chest pain, orthopnea, or other concerns. His afib resolved spontaneously. He reports feeling 100% better this morning; he feels "almost great". Echo reviewed last night and was unremarkable. Normal LV/RV size and systolic function. No hemodynamically significant valvular disease is apparent. Denies any history of cardiac arrhythmias. He has a history of [place] 20 years ago, but no issues since then. He is a former smoker who quit 6 months ago, previously smoked 1-1/2 packs/day for 40 years. No history of thyroid disease. cc:: The requesting physician will be sent a copy of the consult. - Past Medical History Past Medical History: Yes Neurological History: No Pertinent History ENT History: No Pertinent History Cardiac History: High Cholesterol, Hypertension, Myocardial Infarction ([place]) Respiratory History: No Pertinent History Endocrine Medical History: No Pertinent History Musculoskelatal History: Arthritis GI Medical History: No Pertinent History History: No Pertinent History Pyscho-Social History: Anxiety, Depression Male Reproductive Disorders: No Pertinent History Comment: SHIKHA, DVT right leg - Past Surgical History Past Surgical History: Yes (knee, shoulder, cardiac stenting) Neuro Surgical History: No Pertinent History Cardiac History: Cardiac Catheterization, Cardiac Stent Respiratory Surgery: No Pertinent History GI Surgical History: No Pertinent History Genitourinary Surgical Hx: No Pertinent History Musculskeletal Surgical Hx: Orthopedic Surgery Male Surgical History: No Pertinent History Other Surgical History: knee replacement Significant Family History: heart disease (father at advanced age) - Social History Smoking Status: Former smoker (quit 2023; previous 1.5 ppd x40 years) How long have you smoked: Years Exposure to second hand smoke: No Alcohol: Rarely Drug Use: none - Social Determinants of Health Will the patient participate in the screening: Declined to provide Do you worry about a steady place to live?: No Do you have any problems with any of the following?: No known problems In the past 12 months,have you had to go without utilities?: No Have you or anyone in your house had to go without enough: No Transportation Issues: No Has anyone in your support network made you feel unsafe?: No Medications & Allergies Home Medications: Home Medication List Clopidogrel Bisulfate [PLAVIX Tablet] 1 tab PO HS 03/05/23 [History Confirmed 09/13/24] Ezetimibe 10 mg [Zetia 10 MG] 1 tab PO HS 03/05/23 [History Confirmed 09/13/24] Lisinopril/Hydrochlorothiazide [Lisinopril-Hctz 20-12.5 mg Tab] 1 tab PO BID 03/05/23 [History Confirmed 09/13/24] Metoprolol Tartrate 50 mg [Lopressor 50 MG] 1 tab PO BID 03/05/23 [History Confirmed 09/13/24] PARoxetine HCL [Paroxetine HCl] 1 tab PO HS 03/05/23 [History Confirmed 09/13/24] Rosuvastatin Calcium 1 tab PO HS 03/05/23 [History Confirmed 09/13/24] Hydroxyzine HCl 25 mg [Atarax 25 mg] 25 mg PO QID 09/13/24 [History Confirmed 09/13/24] Apixaban [Eliquis] 5 mg PO BID 30 Days #60 tablet 09/14/24 [Rx] Allergies/Adverse Reactions: Allergies Allergy/AdvReac Type Severity Reaction Status Date / Time Penicillins Allergy Verified 09/14/24 04:29 Exam - Vitals Vital Signs: Vital Signs - 24 hr Temp Pulse Resp BP Pulse Ox 09/15/24 08:00 50 L 19 112/48 92 L 09/15/24 07:01 98.0 F 51 L 19 105/56 95 09/15/24 06:01 62 20 102/41 91 L 09/15/24 04:02 56 L 17 114/60 96 09/15/24 04:00 56 L 09/15/24 03:01 72 24 93/45 95 09/15/24 02:01 52 L 24 96/47 92 L 09/15/24 01:02 56 L 24 120/50 97 09/15/24 00:01 98.1 F 58 L 12 94/56 97 09/14/24 23:02 64 18 110/39 97 09/14/24 22:01 57 L 22 118/47 93 L 09/14/24 21:00 63 19 107/46 97 09/14/24 20:27 73 19 101/53 96 09/14/24 20:20 80 31 H 94 L 09/14/24 20:10 79 21 94 L 09/14/24 20:02 74 19 95 09/14/24 20:00 74 09/14/24 19:01 99.3 F 77 20 107/63 95 09/14/24 18:02 74 20 109/60 96 09/14/24 17:01 79 20 121/62 95 09/14/24 16:35 62 09/14/24 16:01 98.6 F 62 21 114/65 96 09/14/24 15:01 63 27 H 117/56 97 09/14/24 14:01 63 24 139/46 94 L 09/14/24 13:01 57 L 22 125/106 96 09/14/24 12:50 57 L 09/14/24 12:01 97.9 F 68 24 125/51 09/14/24 11:01 74 27 H 114/48 97 General:: alert and oriented x 4 HEENT: EOMI Cardiovascular Exam: regular rate/rhythm, bradycardia Respiratory Exam: normal breath sounds SpO2: 92 Gastrointestinal/Abdomen Exam: soft, normal bowel sounds Extremity Exam: other (1+ edema) Neurologic: biofuels production associate II-XII grossly intact Results Vital Signs: Vital Signs - 24 hr Temp Pulse Resp BP Pulse Ox 09/15/24 08:00 50 L 19 112/48 92 L 09/15/24 07:01 98.0 F 51 L 19 105/56 95 09/15/24 06:01 62 20 102/41 91 L 09/15/24 04:02 56 L 17 114/60 96 09/15/24 04:00 56 L 09/15/24 03:01 72 24 93/45 95 09/15/24 02:01 52 L 24 96/47 92 L 09/15/24 01:02 56 L 24 120/50 97 09/15/24 00:01 98.1 F 58 L 12 94/56 97 09/14/24 23:02 64 18 110/39 97 09/14/24 22:01 57 L 22 118/47 93 L 09/14/24 21:00 63 19 107/46 97 09/14/24 20:27 73 19 101/53 96 09/14/24 20:20 80 31 H 94 L 09/14/24 20:10 79 21 94 L 09/14/24 20:02 74 19 95 09/14/24 20:00 74 09/14/24 19:01 99.3 F 77 20 107/63 95 09/14/24 18:02 74 20 109/60 96 09/14/24 17:01 79 20 121/62 95 09/14/24 16:35 62 09/14/24 16:01 98.6 F 62 21 114/65 96 09/14/24 15:01 63 27 H 117/56 97 09/14/24 14:01 63 24 139/46 94 L 09/14/24 13:01 57 L 22 125/106 96 09/14/24 12:50 57 L 09/14/24 12:01 97.9 F 68 24 125/51 09/14/24 11:01 74 27 H 114/48 97 Pain Assessment - Last Documented Pain Intensity 0 Pain Scale Used 0-10 Pain Scale Intake and Output: Intake & Output 09/12/24 09/13/24 09/14/24 09/15/24 11:59 11:59 11:59 11:59 Intake Total 480 720 Output Total 180 325 Balance 300 395 Weight 98.5 kg LAB: [facility] Radiology Exams: Radiology Procedures Category Date Time Status CHEST 1 VIEW (PORTABLE) Stat Exams 09/13/24 19:41 Completed CHEST WITH CONTRAST [CT] Stat Exams 09/13/24 21:13 Completed ECHO W/2D AND DOPPLER [US] Routine Exams 09/14/24 06:22 Taken - ECHO Echo: interpreted by me Multi-Disciplinary Progress Notes: Multi-Disciplinary Progress Notes 09/15/24 09:04 Case Management Note by Ansley Pearson [facility] HAS ACCEPTED PATIENT Initialized on 09/15/24 09:04 - END OF NOTE 09/14/24 14:38 Case Management Note by Ansley Pearson S/W [facility] ELIQUIS RX IS $15 Initialized on 09/14/24 14:38 - END OF NOTE 09/14/24 14:35 Case Management Note by Ansley Pearson REFERRAL FAXED TO [facility]. THEY WILL NEED NOTIFIED AT TIME OF DC AT [phone]. THEY WILL NEED FAXED THE DC INSTRUCTIONS, DC MED LIST AND DC SUMMARY TO [phone] Initialized on 09/14/24 14:35 - END OF NOTE Assessment & Plan (1) New onset a-fib Current Visit: Yes Status: Acute Assessment & Plan: Patient's afib has resolved. Suspect it is being driven by patient's acute illness. Review of tele trends show HRs mostly in the 50-60s. Agree with apixaban as ordered. Echo unremarkable. Will need outpatient cardiology follow up; please arrange. No further inpatient cardiac evaluation needed at this time. Code(s): I48.91 - UNSPECIFIED ATRIAL FIBRILLATION - Encounter Encounter: "The entirety of this encounter was performed via Telemedicine using audio and visual "
[2024-09-15 10:05] VITALS: PULSE 67; RESP 13; O2SAT 94
--- NOTE | 2024-09-15 10:51 | PCM.DS ---
Discharge Summary Date of Admission: 09/14/24 03:22 Date of Discharge: 09/15/24 Admitting Physician: HIRAM RUBIO MD Consults: Consults on Case 09/15/24 08:43 Consult Cardiology ROUTINE Primary Care Provider: SAMRA ANTONY Allergies Allergies Penicillins Allergy (Verified 09/14/24 04:29) Hospital Summary - Hospital Course Hospital Course: Mr. Alcazar is a 74-year-old man with history of CAD, hypertension, and depression, who presents with 1 day of severe cough. He noted onset earlier today of fever, dyspnea, and cough, causing abdominal pain whenever he coughs. Denies any chest pain, nausea, or diarrhea. He noticed an episode of palpitations earlier, although feels legs are better. Denies any history of cardiac arrhythmias. He has a history of [place] 20 years ago, but no issues since then. He is a former smoker who quit 6 months ago, previously smoked 1-1/2 packs/day for 40 years. No history of thyroid disease. Upon arrival to ED EKG showing Afib which is new onset for the patient. Lab findings remarkable for FluA. TSH WNL. Patient admitted for AFIB and FluA. IP treatment with Tamifl u/lopressor/eliquis. HR controlled. Cardiology consulted per patient request. Echo reviewed and was unremarkable. Normal LV/RV size and systolic function. No hemodynamically significant valvular disease is apparent. Review of tele trends show HRs mostly in the 50-60s. Plan to hold lopressor today. Start Metoprolol 50mg xl tomorrow. Patient is scheduled for follow up with his glass driller Dr. Khalida Ruiz this . Will continue the remainder of his Tamiflu. Dyspnea and cough improved. At baseline RA. Discontinue plavix current guidelines state that patient can be maintained on Eliquis without any need for specific antiplatelet therapy. Patient agreeable to plan and requesting discharge. Discharge Note New Diagnosis: AFIB/Flu A New Medications: Eliquis/metoprolol changed to xl 50mg daily - discontinue plavix Follow Up: Cardiology this I spent 35 minutes [id number] with the patient on the day of discharge performing discharge exam, discussing hospital stay and discharge instructions with patient and caregivers, preparation of discharge records, prescriptions & referral forms and addressing any questions/concerns the patient had as documen kathy above. - Vitals & Intake/Output Vital Signs: Vital Signs Temperature 98.0 F 09/15/24 07:01 Pulse Rate 67 09/15/24 10:01 Respiratory Rate 13 09/15/24 10:01 Blood Pressure 119/55 09/15/24 10:01 O2 Sat by Pulse Oximetry 94 L 09/15/24 10:01 Intake & Output: Intake & Output 09/12/24 09/13/24 09/14/24 09/15/24 11:59 11:59 11:59 11:59 Intake Total 480 1080 Output Total 180 325 Balance 300 755 Weight 98.5 kg - Lab Result Diagrams: 09/15/24 05:01 09/15/24 05:01 Lab Results-Last 24 Hrs: Lab Results-Last 24 Hours 09/15/24 09/15/24 09/15/24 Range/Units 05:01 05:01 05:01 WBC 5.4 (4.23-9.07) x10^3/uL RBC 3.49 L (4.63-6.08) x10^6/uL Hgb 11.0 L (13.7-17.5) g/dL Hct 33.3 L (40.1-51.0) % MCV 95.4 H (79.0-92.2) fL MCH 31.5 (25.7-32.2) pg MCHC 33.0 (32.3-36.5) g/dL RDW 14.2 (11.6-14.4) % Plt Count 117 L (163-337) x10^3/uL MPV 10.6 (9.4-12.4) fL Sodium 134 L (135-145) mmol/L Potassium 4.5 (3.5-5.1) mmol/L Chloride 103 (98-107) mmol/L Carbon Dioxide 18 L (22-30) mmol/L Anion Gap 16.6 H (5-15) MEQ/L BUN 30 H (9-20) mg/dL Creatinine 1.26 H (0.66-1.25) mg/dL Estimated GFR 59.1 ML/MIN Glucose 103 (74-106) mg/dL Calcium 8.4 (8.4-10.2) mg/dL TSH 3rd Generation 1.430 (0.470-4.680) mIU/L Micro Results-Entire Visit: Microbiology 09/13/24 20:07 Blood Culture - Preliminary Blood - Radiology Exams Ordered Rad Exams-Entire Visit: Radiology Procedures Category Date Time Status CHEST 1 VIEW (PORTABLE) Stat Exams 09/13/24 19:41 Completed CHEST WITH CONTRAST [CT] Stat Exams 09/13/24 21:13 Completed ECHO W/2D AND DOPPLER [US] Routine Exams 09/14/24 06:22 Taken Discharge Exam General Appearance: no apparent distress Neurologic Exam: alert, oriented x 3, cooperative Eye Exam: PERRL Ears, Nose, Throat Exam: normal ENT inspection Neck Exam: normal inspection Respiratory Exam: normal breath sounds, lungs clear Cardiovascular Exam: regular rate/rhythm, normal heart sounds Gastrointestinal/Abdomen Exam: soft, normal bowel sounds Male Genitalia Exam: deferred Rectal Exam: deferred Back Exam: normal inspection Extremity Exam: normal inspection Skin Exam: normal color Final Diagnosis/Problem List - Final Discharge Diagnosis/Problem (1) New onset a-fib Current Visit: Yes Status: Acute Code(s): I48.91 - UNSPECIFIED ATRIAL FIBRILLATION (2) Influenza A Current Visit: Yes Status: Acute Code(s): J10.1 - FLU DUE TO OTH IDENT INFLUENZA VIRUS W OTH RESP MANIFEST (3) HTN (hypertension) Current Visit: Yes Status: Acute Code(s): I10 - ESSENTIAL (PRIMARY) HYPERTENSION (4) CAD (coronary artery disease) Current Visit: Yes Status: Acute Code(s): I25.10 - ATHSCL HEART DISEASE OF [place] CORONARY ARTERY W/O ANG PCTRS - Discharge Discharge Date: 09/15/24 Disposition: Home, Self-Care Condition: Stable Prescriptions: New Apixaban [Eliquis] 5 mg PO BID 30 Days #60 tablet Apixaban [Eliquis 2.5 mg Tablet] 5 mg PO BID tablet Oseltamivir Phosphate [Oseltamivir Phosphate 30 mg Cap] 30 mg PO BID 3 Days #6 cap Guaifenesin/Codeine 5 ml [Robitussin AC Syrup Unit Dose Cup] 10 ml PO Q4H PRN PRN 5 Days #300 ml PRN Reason: Cough Metoprolol Succinate 50 mg [Toprol Xl 50 MG] 50 mg PO DAILY 30 Days #30 tablet Continue PARoxetine HCL [Paroxetine HCl] 1 tab PO HS Lisinopril/Hydrochlorothiazide [Lisinopril-Hctz 20-12.5 mg Tab] 1 tab PO BID Ezetimibe 10 mg [Zetia 10 MG] 1 tab PO HS Rosuvastatin Calcium 1 tab PO HS Hydroxyzine HCl 25 mg [Atarax 25 mg] 25 mg PO QID Discontinued Clopidogrel Bisulfate [PLAVIX Tablet] 1 tab PO HS Metoprolol Tartrate 50 mg [Lopressor 50 MG] 1 tab PO BID Instructions: Apixaban, Atrial fibrillation - Discharge instructions Additional Instructions: [employer] [facility] [place] HAS BEEN SET UP FOR YOU. THEY WILL CALL YOU TO ARRANGE A TIME TO COME SEE YOU. THEIR PHONE NUMBER IS [phone] IF YOU NEED ANYTHING BEFORE THEIR FIRST VISIT Follow up with: BRODERICK RUIZ [CONSULTING PHYSICIAN] - 09/17/24 12:40 pm SAMRA ANTONY MD [Primary Care Provider] - 09/22/24 2:45 pm ([place] Office) Forms: Discharge Instructions
[2024-09-15 11:22] VITALS: BP 110/46
== END 2024-09-15 11:26 | disposition home or self-care (01) ==
LOC: ED 19:18 → ICU 09-14 03:22
PROVIDERS: ADMIT Internal Medicine; ATTEND Internal Medicine
DX: I48.91 Unspecified atrial fibrillation (principal); J10.1 Influenza due to other identified influenza virus with other respiratory manifestations; I10 Essential (primary) hypertension; I25.10 Atherosclerotic heart disease of native coronary artery without angina pectoris; R07.9 Chest pain, unspecified; I25.2 Old myocardial infarction; Z79.01 Long term (current) use of anticoagulants; Z79.899 Other long term (current) drug therapy; Z87.891 Personal history of nicotine dependence; Z86.718 Personal history of other venous thrombosis and embolism
CPT/HCPCS: 0241U; 36415; 71045; 71260; 80048; 80053; 83605; 84443; 84484; 85025; 85027; 85379; 85610; 85730; 87040; 93005; 93268; 93306; 96374; 96375; 96376; 99285; G0378; Q3014; 99284; J1644; A9270-GY